=== PATIENT | male | born 1940 | race Caucasian/White ===

== ENCOUNTER 2016-11-18 15:29 | Outpatient (CLI) | payer MEDICARE, BC | END 2016-11-18 15:30 | disposition home or self-care (01) | DX: I48.0 Paroxysmal atrial fibrillation (principal); Z79.01 Long term (current) use of anticoagulants ==

== ENCOUNTER 2016-12-01 14:13 | Outpatient (CLI) | payer MEDICARE, BC | END 2016-12-01 14:14 | disposition home or self-care (01) | DX: I48.0 Paroxysmal atrial fibrillation (principal); Z79.01 Long term (current) use of anticoagulants ==

== ENCOUNTER 2016-12-16 05:01 | Emergency (ER) | payer MEDICARE, BC ==
[2016-12-16] MEDS ORDERED: oxyCOD/ACETAMIN 5 MG/325 MG TABLET PO STA (05:46)
[2016-12-16] MEDS ORDERED: oxyCOD/ACETAMIN 5 MG/325 MG TABLET PO ONE (05:52)
== END 2016-12-16 06:53 | disposition home or self-care (01) ==
DX: S80.12XA Contusion of left lower leg, initial encounter (principal); W01.0XXA Fall on same level from slipping, tripping and stumbling without subsequent striking against object, initial encounter; Y93.89 Activity, other specified; Y92.009 Unspecified place in unspecified non-institutional (private) residence as the place of occurrence of the external cause; Y99.8 Other external cause status; I10 Essential (primary) hypertension; I25.10 Atherosclerotic heart disease of native coronary artery without angina pectoris; I48.91 Unspecified atrial fibrillation; Z79.01 Long term (current) use of anticoagulants; Z79.02 Long term (current) use of antithrombotics/antiplatelets; E03.9 Hypothyroidism, unspecified
CPT/HCPCS: 36415; 73590; 73610; 80053; 83690; 85025; 85610; 99283; 99284; A9270

== ENCOUNTER 2017-01-04 15:08 | Outpatient (CLI) | payer MEDICARE, BC | END 2017-01-04 15:09 | disposition home or self-care (01) | DX: I48.0 Paroxysmal atrial fibrillation (principal); Z79.01 Long term (current) use of anticoagulants ==

== ENCOUNTER 2017-01-19 14:23 | Outpatient (CLI) | payer MEDICARE, BC | END 2017-01-19 14:24 | disposition home or self-care (01) | DX: I48.0 Paroxysmal atrial fibrillation (principal); Z79.01 Long term (current) use of anticoagulants ==

== ENCOUNTER 2017-02-02 08:00 | Outpatient (CLI) | payer MEDICARE, BC | END 2017-02-02 23:59 | DX: Z79.01 Long term (current) use of anticoagulants (principal) ==

== ENCOUNTER 2017-02-22 14:00 | Outpatient (CLI) | payer BC, MEDICARE, OTHER | END 2017-02-22 14:01 | disposition home or self-care (01) | DX: L03.116 Cellulitis of left lower limb (principal) ==

== ENCOUNTER 2017-03-16 14:01 | Outpatient (CLI) | payer MEDICARE, BC | END 2017-03-16 14:02 | disposition home or self-care (01) | DX: I48.0 Paroxysmal atrial fibrillation (principal); Z79.01 Long term (current) use of anticoagulants ==

== ENCOUNTER 2017-04-14 | Outpatient (CLI) | payer MEDICARE, BC ==
[2017-04-14 17:48] LABS: INR 2.9 (0.8-1.2); PT - PROTHROMBIN TIME 33.6 secs (9.9-12.6)
== END 2017-04-14 00:01 | disposition home or self-care (01) ==
LOC: LAB.F
PROVIDERS: ATTEND Pharmacist
DX: I48.0 Paroxysmal atrial fibrillation (principal); Z79.01 Long term (current) use of anticoagulants
CPT/HCPCS: 36415; 85610

== ENCOUNTER 2017-05-24 14:46 | Outpatient (CLI) | payer MEDICARE, BC ==
[2017-05-24 18:56] LABS: INR 2.3 (0.8-1.2); PT - PROTHROMBIN TIME 25.8 secs (9.9-12.6)
== END 2017-05-24 14:47 | disposition home or self-care (01) ==
LOC: LAB.F 14:46
PROVIDERS: ATTEND Pharmacist
DX: I48.0 Paroxysmal atrial fibrillation (principal)
CPT/HCPCS: 36415; 85610

== ENCOUNTER 2017-10-18 19:03 | Emergency (ER) | payer MEDICARE, BC ==
--- NOTE | 2017-10-18 20:15 | XRAY Preliminary Report ---
Exam: XR CHEST 2 VIEW PA/LAT IMPRESSION: 1. Increased interstitial density right lung base. Differential includes edema, airways inflammation, pneumonitis or bronchiolitis. 2. Possible increasing left pleural thickening, pleural fat or pleural mass less likely at lateral le ft base. 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 [facility] SITE ID: [id number]
[2017-10-18] MEDS ORDERED: IPRATROPIUM/ALBUTEROL 3 ML NEB INH STA (20:16)
[2017-10-18 20:18] LABS: BASOPHILS % (AUTO) 0.6 %; EOSINOPHILS # (AUTO) 0.3 10^3/uL (0.0-0.7); EOSINOPHILS % (AUTO) 4.7 %; HCT - HEMATOCRIT 39.9 % (42.0-52.0); HGB - HEMOGLOBIN 13.1 g/dL (14.0-18.0); LYMPHOCYTES # (AUTO) 1.1 10^3/uL (1.5-3.5); LYMPHOCYTES % (AUTO) 14.7 %; MEAN CORPUSCULAR HEMOGLOBIN 29.4 pg (27.0-31.0); MEAN CORPUSCULAR VOLUME 89.2 fL (80.0-94.0); MEAN PLATELET VOLUME 7.6 fL (7.4-11.4); MONOCYTES # (AUTO) 0.5 10^3/uL (0.0-1.0); MONOCYTES % (AUTO) 7.3 %; NEUTROPHILS # (AUTO) 5.3 10^3/uL (1.5-6.6); NEUTROPHILS % (AUTO) 72.7 %; NUCLEATED RED BLOOD CELLS AUTO 0.1 /100WBC; RED BLOOD COUNT 4.47 10^6/uL (4.70-6.10); RED CELL DISTRIBUTION WIDTH 17.2 % (12.0-15.0); UNCORRECTED WHITE BLOOD COUNT 7.3 x10^3/uL; WHITE BLOOD COUNT 7.3 x10^3/uL (4.8-10.8)
--- NOTE | 2017-10-18 20:18 | XRAY Report ---
EXAM: CHEST RADIOGRAPHY EXAM DATE: 10/18/2017 08:03 PM. CLINICAL HISTORY: Chest pain and cough . COMPARISON: 11/08/2010. TECHNIQUE: 2 views. FINDINGS: Lungs/Pleura: There are interstitial densities at the right lung base which appear more conspicuous t [place] previous. There is a circumscribed density overlying the lower lateral left lung which appears ex trapulmonary. The shape is similar to previous but appears slightly more prominent. Mediastinum: Heart size is normal. Trachea is midline. Other: Lateral view is limited by motion artifact. IMPRESSION: 1. Increased interstitial density right lung base. Differential includes edema, airways inflammation, pneumonitis or bronchiolitis. 2. Possible increasing left pleural thickening, pleural fat or pleural mass less likely at lateral le ft base. 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 [facility] Referring Provider Line: [phone] SITE ID: [id number]
[2017-10-18 20:27] LABS: ALBUMIN/GLOBULIN RATIO 1.2 (1.0-2.2); BILIRUBIN,TOTAL 0.8 mg/dL (0.2-1.0); CALCIUM 8.8 mg/dL (8.5-10.3); CREATININE 1.3 mg/dL (0.6-1.2); TOTAL PROTEIN 7.3 g/dL (6.7-8.2)
[2017-10-18] MEDS ORDERED: IPRATROPIUM/ALBUTEROL 3 ML NEB INH ONE (20:27)
[2017-10-18] MEDS ORDERED: methylPREDNISolone SUCCINATE 125 MG/2 ML VIAL IVP STA (21:00)
[2017-10-18] MEDS ORDERED: ALBUTEROL NEB 2.5 MG/3 ML INH STA (21:00)
[2017-10-18] MEDS ORDERED: ALBUTEROL NEB 2.5 MG/3 ML INH ONE (21:18)
[2017-10-18] MEDS ORDERED: methylPREDNISolone SUCCINATE 125 MG/2 ML VIAL ONE (21:23)
--- NOTE | 2017-10-18 21:35 | ED Physician Documentation ---
PD HPI URI - Stated complaint Stated Complaint: CHEST PX,COUGH,CONGESTION - Chief complaint Chief Complaint: Resp - History obtained from History obtained from: Patient, Family - History of Present Illness Timing - onset: How many days ago (3) Timing details: Gradual onset, Still present Associated symptoms: Rhinorrhea, Dry cough. No: Fever, Chills Contributing factors: No: Sick contact, COPD / asthma Worsened by: Activity Similar symptoms before: No diagnosis Recently seen: Not recently seen - Additional information Additional information: Patient is a 76 year old male with multiple co-morbidities who is presenting to the emergency department for chest pressure and cough over the last three days. patient states that he has not been able to sleep due to the amount that he is coughing. Patient states that he did break a rib from falling a few weeks ago as well and it is making every difficult to take a deep breath. Review of Systems Constitutional: denies: Fever, Chills Eyes: reports: Reviewed and negative Ears: reports: Reviewed and negative Nose: reports: Congestion. denies: Sinus pressure / pain Throat: denies: Sore throat Cardiac: reports: Chest pain / pressure. denies: Pedal edema, Calf pain Respiratory: reports: Cough, Wheezing GI: denies: Nausea, Vomiting : reports: Reviewed and negative Musculoskeletal: denies: Neck pain, Back pain, Extremity pain Neurologic: denies: Generalized weakness, Focal weakness, Numbness Immunocompromised: denies: Immunocompromised PD PAST MEDICAL HISTORY - Past Medical History Cardiovascular: Hypertension, High cholesterol, Coronary artery disease, Atrial fibrillation Respiratory: Sleep apnea, CPAP use Endocrine/Autoimmune: HyPOthyroidism GI: None, GERD : Benign prostate hypertrophy, Retention, Frequency HEENT: Chronic vision loss, Chronic hearing loss, Other Psych: Depression Musculoskeletal: Chronic back pain - Past Surgical History Past Surgical History: Yes - Present Medications Home Medications: Ambulatory Orders Medication Instructions Recorded Confirmed Metoprolol Tartrate 50 mg PO BID #60 tablet 09/28/15 12/16/16 Atorvastatin [Lipitor] 80 mg PO DAILY PM 12/16/16 12/16/16 Cetirizine [ZyrTEC] 10 mg PO DAILY 12/16/16 12/16/16 Cholecalciferol (Vitamin D3) 1,000 unit PO DAILY 12/16/16 12/16/16 [Vitamin D3] Clopidogrel [Plavix] 75 mg PO DAILY 12/16/16 12/16/16 Cyanocobalamin (Vitamin B-12) 1,000 mcg PO DAILY 12/16/16 12/16/16 [Vitamin B-12] Econazole Nitrate 1 misc TOP DAILY PM 12/16/16 12/16/16 Flunisolide 0.025 sprays NEB DAILY 12/16/16 12/16/16 Furosemide [Lasix] 120 mg PO DAILY 12/16/16 12/16/16 Gabapentin 300 mg PO BID 12/16/16 12/16/16 Hydrocodone/Acetaminophen 1 - 2 each PO Q6H PRN #7 tablet 12/16/16 [Hydrocodon-Acetaminophen 5-325] Levothyroxine [Synthroid] 100 mcg PO DAILY 12/16/16 12/16/16 Metoprolol Tartrate 50 mg PO BID 12/16/16 12/16/16 Omeprazole [PriLOSEC] 20 mg PO BID 12/16/16 12/16/16 Oxybutynin Chloride 5 mg PO BID 12/16/16 12/16/16 Potassium Chloride 20 meq PO DAILY PM 12/16/16 12/16/16 Sertraline HCl 50 mg PO DAILY 12/16/16 12/16/16 Sodium Chloride [Saline Mist] 2 spray NEB BID 12/16/16 12/16/16 Terazosin [Hytrin] 5 mg PO DAILY PM 12/16/16 12/16/16 Testosterone 75 gm TD DAILY 12/16/16 12/16/16 Warfarin [Coumadin] 4 mg PO 1400 12/16/16 12/16/16 Albuterol Sulf [Ventolin Hfa 2 puffs INH Q4HR PRN #1 inhaler 10/18/17 Inhaler] Benzonatate [Tessalon Perle] 100 mg PO Q8H #15 capsule 10/18/17 Codeine Phosphate/Guaifenesin 5 ml PO Q8H #100 ml 10/18/17 [Guaifen-Codeine 100-10 mg/5 ml] predniSONE [Prednisone] 40 mg PO DAILY 5 Days tablet 10/18/17 - Allergies Allergies/Adverse Reactions: Allergies Allergy/AdvReac Type Severity Reaction Status Date / Time No Known Drug Allergies Allergy Verified 10/18/17 19:19 - Social History Does the pt smoke?: No Smoking Status: Never smoker Does the pt drink ETOH?: No Does the pt have substance abuse?: No - Immunizations Immunizations are current?: Yes - POLST Patient has POLST: No PD ED PE NORMAL - Vitals Vital signs reviewed: Yes - General General: Alert and oriented X 3, Well developed/nourished - HEENT HEENT: Atraumatic, PERRL, Pharynx benign - Neck Neck: Supple, no meningeal sign, No JVD - Cardiac Cardiac: RRR, No murmur - Abdomen Abdomen: Soft, Non tender, Non distended - Derm Derm: Normal color, Warm and dry, No rash - Extremities Extremities: No deformity, No edema - Neuro Neuro: Alert and oriented X 3, No motor deficit, No sensory deficit, Normal speech - Psych Psych: Normal mood PD ED PE EXPANDED - HEENT HEENT: Dry mucous membranes - Respiratory Respiratory: Wheezing, Rhonchi, Right upper lobe, Right middle lobe, Right lower lobe, Left upper lobe, Left lower lobe. No: Distress, Accessory mm use Results - Vitals Vitals: Vital Signs - 24 hr 10/18/17 10/18/17 10/18/17 19:11 20:40 21:22 Temperature 36.6 C Heart Rate 86 92 93 Respiratory 22 16 100 H Rate Blood Pressure 138/81 H O2 Saturation 96 10/18/17 10/18/17 10/18/17 21:30 21:31 22:03 Temperature Heart Rate 106 H 91 98 Respiratory 16 15 19 Rate Blood Pressure 163/93 H 143/100 H O2 Saturation 96 94 Oxygen O2 Source Room air - EKG (time done) 1916 Rate: Rate (enter#) (76) Rhythm: Atrial fibrillation [place]: Normal Intervals: Normal OK Compare to prior EKG: Unchanged from prior EKG - Labs Labs: Laboratory Tests 10/18/17 10/18/17 10/18/17 19:27 19:27 19:27 WBC 7.3 RBC 4.47 L Hgb 13.1 L Hct 39.9 L MCV 89.2 MCH 29.4 MCHC 33.0 RDW 17.2 H Plt Count 192 MPV 7.6 Neut # 5.3 Lymph # 1.1 L [place] # 0.5 Eos # 0.3 Baso # 0.0 Absolute Nucleated RBC 0.01 Nucleated RBC % 0.1 Sodium 140 Potassium 4.0 Chloride 103 Carbon Dioxide 27 Anion Gap 10.0 BUN 16 Creatinine 1.3 H Estimated GFR (MDRD) 53 L Glucose 129 H Calcium 8.8 Total Bilirubin 0.8 AST 37 ALT 41 Alkaline Phosphatase 84 Troponin I < 0.04 Total Protein 7.3 Albumin 4.0 Globulin 3.3 Albumin/Globulin Ratio 1.2 Lipase 42 - Rads (name of study) chest x-ray Radiology: Final report received (density of right lung base, ), See rad report PD MEDICAL DECISION MAKING - ED course Complexity details: reviewed old records, reviewed results, re-evaluated patient , considered differential, d/w patient ED course: Patient was seen and examined at bedside. ekg was performed and showed a fib which was normal for the patient. labs were drawn and chest x-ray was ordered. Patient had bilateral wheezing and was treated with duoneb treatment. Patient inmproved slightly but continued to have wheezing and was treated with additional albuterol treatments and steroids. Patient ventilation continued to improve but patient still had some mild wheezing. patient stated that he wanted to leave and did not want any more treatments. Patient was given detailed discharge and follow up instructions, including the importance of a follow up echo. Patient and friend agreed that they would get close follow up. Patient was feeling better, prescriptions were written and patient was stable for discharge with outpatient follow up. Departure - Departure Disposition: 01 Home, Self Care Clinical Impression: Bronchitis Condition: Good Instructions: ED Bronchitis Asthmatic Follow-Up: Fabian Moreno MD [Primary Care Provider] - Tomorrow Prescriptions: Albuterol Sulf [Ventolin Hfa Inhaler] 2 puffs INH Q4HR PRN #1 inhaler PRN Reason: Wheezing Benzonatate [Tessalon Perle] 100 mg PO Q8H #15 capsule Codeine Phosphate/Guaifenesin [Guaifen-Codeine 100-10 mg/5 ml] 5 ml PO Q8H #100 ml predniSONE [Prednisone] 40 mg PO DAILY 5 Days tablet Comments: Your diagnostics today were within normal limits. there was a small amount of possibly fluid in your lungs from heart failure and not taking a deep breath due to your rib pain. You also had some wheezing that improved with the breathing treatments and steroids. You will be on the steriods for the next 5 days, and I will also prescribed an inhaler that you can take every 4 hours. Due to your age and risk factors it is also important that you follow up with your doctor tomorrow and schedule a follow up appointment and an echo cardiogram. You may return to to the emergency department at any time for new, worsening or uncontrollable symptoms. Discharge Date/Time: 10/18/17 22:05
[2017-10-18] MEDS ORDERED: MORPHINE 10 MG/ML VIAL IVP STA (21:36)
[2017-10-18 22:04] VITALS: BP 143/100
== END 2017-10-18 22:05 | disposition home or self-care (01) ==
LOC: ED 19:03
DX: J40 Bronchitis, not specified as acute or chronic (principal); I10 Essential (primary) hypertension; I25.10 Atherosclerotic heart disease of native coronary artery without angina pectoris; E78.00 Pure hypercholesterolemia, unspecified; G47.30 Sleep apnea, unspecified; E03.9 Hypothyroidism, unspecified; K21.9 Gastro-esophageal reflux disease without esophagitis; N40.0 Benign prostatic hyperplasia without lower urinary tract symptoms
CPT/HCPCS: 36415; 71020; 80053; 83690; 84484; 85025; 93005; 94640; 96374; 99283; 99284; J7613; J7620

== ENCOUNTER 2017-11-20 08:00 | Outpatient (CLI) | payer MEDICARE, BC ==
[2017-11-20 18:31] LABS: INR 2.9 (0.8-1.2); PT - PROTHROMBIN TIME 31.2 secs (9.9-12.6)
== END 2017-11-20 08:01 | disposition home or self-care (01) ==
LOC: LAB.F 08:00
PROVIDERS: ATTEND Pharmacist
DX: I48.0 Paroxysmal atrial fibrillation (principal); Z79.01 Long term (current) use of anticoagulants
CPT/HCPCS: 36415; 85610

== ENCOUNTER 2017-12-06 18:23 | Emergency (ER) | payer MEDICARE, BC ==
--- NOTE | 2017-12-06 19:44 | XRAY Report ---
EXAM: CHEST RADIOGRAPHY EXAM DATE: 12/06/2017 07:32 PM. CLINICAL HISTORY: Fever and cough since yesterday. COMPARISON: 10/18/2017. TECHNIQUE: 2 views. FINDINGS: Lungs/Pleura: Stable mild scarring in the bases and lateral pleural thickening at the left base. No f ocal opacities evident. No pleural effusion. No pneumothorax. Hyperinflated lungs. Mediastinum: Heart and mediastinal contours are unremarkable. Other: No compression fractures. IMPRESSION: No acute pulmonary abnormality or interval change. [facility] Referring Provider Line: [phone] SITE ID: [id number]
[2017-12-06] MEDS ORDERED: IPRATROPIUM/ALBUTEROL 3 ML NEB INH STA (19:54)
--- NOTE | 2017-12-06 20:50 | ED Physician Documentation ---
History of Present Illness - Stated complaint Stated Complaint: FLU LIKE SYMPTOMS - Chief complaint Chief Complaint: Resp - History obtained from History obtained from: Patient (2-3 days of fatigue and cough. no sinus congestion. is on home o2 and has nothad an increase in his o2 need, no fevers , no chest pain..) Review of Systems Constitutional: reports: Fatigue. denies: Fever, Chills Nose: denies: Rhinorrhea / runny nose, Congestion, Sinus pressure / pain Throat: denies: Sore throat, Swollen tonsils Cardiac: denies: Chest pain / pressure, Palpitations Respiratory: reports: Cough. denies: Dyspnea, Hemoptysis, Wheezing GI: denies: Abdominal Pain, Nausea, Vomiting : denies: Dysuria Skin: denies: Rash Musculoskeletal: denies: Neck pain, Back pain Neurologic: reports: Generalized weakness. denies: Headache, LOC PD PAST MEDICAL HISTORY - Past Medical History Past Medical History: Yes Cardiovascular: Hypertension, High cholesterol, Coronary artery disease, Atrial fibrillation Respiratory: Sleep apnea, CPAP use Endocrine/Autoimmune: HyPOthyroidism GI: None, GERD : Benign prostate hypertrophy, Retention, Frequency HEENT: Chronic vision loss, Chronic hearing loss, Other Psych: Depression Musculoskeletal: Chronic back pain - Past Surgical History Past Surgical History: Yes - Present Medications Home Medications: Ambulatory Orders Medication Instructions Recorded Confirmed Metoprolol Tartrate 50 mg PO BID #60 tablet 09/28/15 12/16/16 Atorvastatin [Lipitor] 80 mg PO DAILY PM 12/16/16 12/16/16 Cetirizine [ZyrTEC] 10 mg PO DAILY 12/16/16 12/16/16 Cholecalciferol (Vitamin D3) 1,000 unit PO DAILY 12/16/16 12/16/16 [Vitamin D3] Clopidogrel [Plavix] 75 mg PO DAILY 12/16/16 12/16/16 Cyanocobalamin (Vitamin B-12) 1,000 mcg PO DAILY 12/16/16 12/16/16 [Vitamin B-12] Econazole Nitrate 1 misc TOP DAILY PM 12/16/16 12/16/16 Flunisolide 0.025 sprays NEB DAILY 12/16/16 12/16/16 Furosemide [Lasix] 120 mg PO DAILY 12/16/16 12/16/16 Gabapentin 300 mg PO BID 12/16/16 12/16/16 Hydrocodone/Acetaminophen 1 - 2 each PO Q6H PRN #7 tablet 12/16/16 [Hydrocodon-Acetaminophen 5-325] Levothyroxine [Synthroid] 100 mcg PO DAILY 12/16/16 12/16/16 Metoprolol Tartrate 50 mg PO BID 12/16/16 12/16/16 Omeprazole [PriLOSEC] 20 mg PO BID 12/16/16 12/16/16 Oxybutynin Chloride 5 mg PO BID 12/16/16 12/16/16 Potassium Chloride 20 meq PO DAILY PM 12/16/16 12/16/16 Sertraline HCl 50 mg PO DAILY 12/16/16 12/16/16 Sodium Chloride [Saline Mist] 2 spray NEB BID 12/16/16 12/16/16 Terazosin [Hytrin] 5 mg PO DAILY PM 12/16/16 12/16/16 Testosterone 75 gm TD DAILY 12/16/16 12/16/16 Warfarin [Coumadin] 4 mg PO 1400 12/16/16 12/16/16 Albuterol Sulf [Ventolin Hfa 2 puffs INH Q4HR PRN #1 inhaler 10/18/17 Inhaler] Benzonatate [Tessalon Perle] 100 mg PO Q8H #15 capsule 10/18/17 Codeine Phosphate/Guaifenesin 5 ml PO Q8H #100 ml 10/18/17 [Guaifen-Codeine 100-10 mg/5 ml] predniSONE [Prednisone] 40 mg PO DAILY 5 Days tablet 10/18/17 Albuterol Sulf [Ventolin Hfa 2 puffs INH Q4HR PRN #1 inhaler 12/06/17 Inhaler] Oseltamivir [Tamiflu] 75 mg PO BID #10 capsule 12/06/17 - Allergies Allergies/Adverse Reactions: Allergies Allergy/AdvReac Type Severity Reaction Status Date / Time No Known Drug Allergies Allergy Verified 12/06/17 18:44 - Social History Does the pt smoke?: No Smoking Status: Never smoker Does the pt drink ETOH?: No Does the pt have substance abuse?: No - Immunizations Immunizations are current?: Yes - POLST Patient has POLST: No PD ED PE NORMAL - Vitals Vital signs reviewed: Yes - General General: Alert and oriented X 3, No acute distress, Well developed/nourished - Cardiac Cardiac: No: RRR (tachycardic) - Respiratory Respiratory: No: Clear bilaterally (bilateral rhonchi and wheezing) - Abdomen Abdomen: Soft, Non tender - Derm Derm: Normal color, No rash - Extremities Extremities: No deformity - Neuro Neuro: Alert and oriented X 3, No motor deficit, Normal speech Eye Opening: Spontaneous Motor: Obeys Commands Verbal: Oriented GCS Score: 15 - Psych Psych: Normal mood, Normal affect Results - Vitals Vitals: Vital Signs - 24 hr 12/06/17 12/06/17 12/06/17 18:40 20:00 20:40 Temperature 36.0 C L Heart Rate 102 H 86 93 Respiratory 26 H 20 21 Rate Blood Pressure 139/74 H 138/73 H O2 Saturation 87 L 94 Oxygen O2 Source Nasal cannula Oxygen Flow Rate 2.5 - Labs Labs: Laboratory Tests 12/06/17 19:00 Influenza A (Rapid) Negative Influenza B (Rapid) POSITIVE H Influenza Types A,B Ag + H - Rads (name of study) CXR Radiology: Final report received (IMPRESSION: No acute pulmonary abnormality or interval change.), EMP read contemporaneously PD MEDICAL DECISION MAKING - ED course Complexity details: reviewed results, considered differential, d/w patient ED course: pt is non-toxic, no respiratory distress. is on his home o2. minimal improvement with the neb here in the ER. pt states he just is fatigued. he is flu positive. he does meet criteria from CDC for treatment. will send home with meds. pt given return precautions . Departure - Departure Disposition: Home, Self Care Clinical Impression: Flu, Shortness of breath Condition: Good Instructions: ED Flu Follow-Up: Fabian Moreno MD [Primary Care Provider] - Prescriptions: Albuterol Sulf [Ventolin Hfa Inhaler] 2 puffs INH Q4HR PRN #1 inhaler PRN Reason: Shortness Of Air/Wheezing Oseltamivir [Tamiflu] 75 mg PO BID #10 capsule Comments: Take all of your medications as instructed. Return to the ER for any new or worsening symptoms. Discharge Date/Time: 12/06/17 20:55
[2017-12-06 21:19] VITALS: BP 138/73
== END 2017-12-06 20:55 | disposition home or self-care (01) ==
LOC: ED 18:23
DX: J11.1 Influenza due to unidentified influenza virus with other respiratory manifestations (principal); R06.02 Shortness of breath; I10 Essential (primary) hypertension; E78.00 Pure hypercholesterolemia, unspecified; E03.9 Hypothyroidism, unspecified; I48.91 Unspecified atrial fibrillation; Z79.01 Long term (current) use of anticoagulants
CPT/HCPCS: 71046; 87275; 87276; 94640; 99283; J7620

== ENCOUNTER 2017-12-12 14:15 | Outpatient (CLI) | payer MEDICARE, BC ==
[2017-12-12 17:43] LABS: INR 1.6 (0.8-1.2)
== END 2017-12-12 14:16 | disposition home or self-care (01) ==
LOC: LAB.F 14:15
PROVIDERS: ATTEND Pharmacist
DX: I48.0 Paroxysmal atrial fibrillation (principal); Z79.01 Long term (current) use of anticoagulants
CPT/HCPCS: 36415; 85610

== ENCOUNTER 2017-12-28 15:07 | Outpatient (CLI) | payer MEDICARE, BC ==
[2017-12-28 17:33] LABS: INR 4.1 (0.8-1.2); PT - PROTHROMBIN TIME 43.5 secs (9.9-12.6)
== END 2017-12-28 15:08 | disposition home or self-care (01) ==
LOC: LAB.F 15:07
PROVIDERS: ATTEND Pharmacist
DX: I48.0 Paroxysmal atrial fibrillation (principal); Z79.01 Long term (current) use of anticoagulants
CPT/HCPCS: 36415; 85610

== ENCOUNTER 2018-01-04 13:59 | Outpatient (CLI) | payer MEDICARE, BC ==
[2018-01-04 17:33] LABS: INR 2.6 (0.8-1.2); PT - PROTHROMBIN TIME 28.5 secs (9.9-12.6)
== END 2018-01-04 14:00 | disposition home or self-care (01) ==
LOC: LAB.F 13:59
PROVIDERS: ATTEND Pharmacist
DX: I48.0 Paroxysmal atrial fibrillation (principal); Z79.01 Long term (current) use of anticoagulants
CPT/HCPCS: 36415; 85610

== ENCOUNTER 2018-01-23 08:00 | Outpatient (CLI) | payer MEDICARE, BC ==
[2018-01-23 18:17] LABS: PT - PROTHROMBIN TIME 32.8 secs (9.9-12.6)
== END 2018-01-23 08:01 ==
LOC: LAB.F 08:00
PROVIDERS: ATTEND Pharmacist
DX: I48.0 Paroxysmal atrial fibrillation (principal); Z79.01 Long term (current) use of anticoagulants
CPT/HCPCS: 36415; 85610

== ENCOUNTER 2018-01-23 15:26 | Outpatient (CLI) | payer MEDICARE, BC | END 2018-01-23 15:27 | disposition home or self-care (01) | LOC: LAB.F 15:26 | PROVIDERS: ATTEND Pharmacist | DX: I48.91 Unspecified atrial fibrillation (principal); Z79.01 Long term (current) use of anticoagulants ==

== ENCOUNTER 2018-02-09 16:20 | Outpatient (CLI) | payer MEDICARE, BC ==
[2018-02-09 18:27] LABS: PT - PROTHROMBIN TIME 21.6 secs (9.9-12.6)
== END 2018-02-09 16:21 | disposition home or self-care (01) ==
LOC: LAB.F 16:20
PROVIDERS: ATTEND Pharmacist
DX: I48.0 Paroxysmal atrial fibrillation (principal); Z79.01 Long term (current) use of anticoagulants
CPT/HCPCS: 36415; 85610

== ENCOUNTER 2018-04-12 14:31 | Outpatient (CLI) | payer MEDICARE, BC ==
[2018-04-12 17:45] LABS: INR 3.2 (0.8-1.2); PT - PROTHROMBIN TIME 34.2 secs (9.9-12.6)
== END 2018-04-12 14:32 | disposition home or self-care (01) ==
LOC: LAB.F 14:31
PROVIDERS: ATTEND Pharmacist
DX: I48.0 Paroxysmal atrial fibrillation (principal); Z79.01 Long term (current) use of anticoagulants
CPT/HCPCS: 36415; 85610

== ENCOUNTER 2018-07-10 16:16 | Outpatient (CLI) | payer MEDICARE, BC ==
[2018-07-10 18:34] LABS: INR 2.4 (0.8-1.2); PT - PROTHROMBIN TIME 26.2 secs (9.9-12.6)
== END 2018-07-10 16:17 ==
LOC: LAB.F 16:16
PROVIDERS: ATTEND Pharmacist
DX: I48.0 Paroxysmal atrial fibrillation (principal); Z79.01 Long term (current) use of anticoagulants
CPT/HCPCS: 36415; 85610

== ENCOUNTER 2018-08-22 13:41 | Emergency (ER) | payer MEDICARE, BC ==
[2018-08-22] MEDS ORDERED: LIDOCAINE 2% URO-JET 5 ML SYRINGE UR STA (14:52)
--- NOTE | 2018-08-22 14:54 | ED Physician Documentation ---
PD HPI ABD PAIN - Stated complaint Stated Complaint: MALE - Chief complaint Chief Complaint: Abd Pain - History obtained from History obtained from: Patient - History of Present Illness Timing - onset: Other (For the last week this 77-year-old morbidly obese gentleman has had burning dysuria and frequency and incomplete emptying without back or abdominal pain or rectal pain. No fevers.) Review of Systems Constitutional: denies: Fever, Chills Nose: reports: Reviewed and negative Throat: reports: Reviewed and negative PD PAST MEDICAL HISTORY - Past Medical History Cardiovascular: Hypertension, High cholesterol, Coronary artery disease, Atrial fibrillation Respiratory: Sleep apnea, CPAP use Endocrine/Autoimmune: HyPOthyroidism GI: None, GERD : Benign prostate hypertrophy, Retention, Frequency HEENT: Chronic vision loss, Chronic hearing loss, Other Psych: Depression Musculoskeletal: Chronic back pain - Past Surgical History Past Surgical History: Yes - Present Medications Home Medications: Ambulatory Orders Medication Instructions Recorded Confirmed Metoprolol Tartrate 50 mg PO BID #60 tablet 09/28/15 12/16/16 Atorvastatin [Lipitor] 80 mg PO DAILY PM 12/16/16 12/16/16 Cetirizine [ZyrTEC] 10 mg PO DAILY 12/16/16 12/16/16 Cholecalciferol (Vitamin D3) 1,000 unit PO DAILY 12/16/16 12/16/16 [Vitamin D3] Cyanocobalamin (Vitamin B-12) 1,000 mcg PO DAILY 12/16/16 12/16/16 [Vitamin B-12] Econazole Nitrate 1 misc TOP DAILY PM 12/16/16 12/16/16 Flunisolide 0.025 sprays NEB DAILY 12/16/16 12/16/16 Furosemide [Lasix] 120 mg PO DAILY 12/16/16 12/16/16 Gabapentin 300 mg PO BID 12/16/16 12/16/16 Levothyroxine [Synthroid] 100 mcg PO DAILY 12/16/16 12/16/16 Metoprolol Tartrate 50 mg PO BID 12/16/16 12/16/16 Omeprazole [PriLOSEC] 20 mg PO BID 12/16/16 12/16/16 Oxybutynin Chloride 5 mg PO BID 12/16/16 12/16/16 Potassium Chloride 20 meq PO DAILY PM 12/16/16 12/16/16 Sertraline HCl 50 mg PO DAILY 12/16/16 12/16/16 Sodium Chloride [Saline Mist] 2 spray NEB BID 12/16/16 12/16/16 Terazosin [Hytrin] 5 mg PO DAILY PM 12/16/16 12/16/16 Testosterone 75 gm TD DAILY 12/16/16 12/16/16 Warfarin [Coumadin] 4 mg PO 1400 12/16/16 12/16/16 Albuterol Sulf [Ventolin Hfa 2 puffs INH Q4HR PRN #1 inhaler 10/18/17 Inhaler] Albuterol Sulf [Ventolin Hfa 2 puffs INH Q4HR PRN #1 inhaler 12/06/17 Inhaler] Ciprofloxacin HCl [Cipro] 500 mg PO BID #20 tablet 08/22/18 - Allergies Allergies/Adverse Reactions: Allergies Allergy/AdvReac Type Severity Reaction Status Date / Time No Known Drug Allergies Allergy Verified 08/22/18 14:11 - Social History Does the pt smoke?: No Smoking Status: Never smoker Does the pt drink ETOH?: No Does the pt have substance abuse?: No - Immunizations Immunizations are current?: Yes - POLST Patient has POLST: No PD ED PE NORMAL - Vitals Vital signs reviewed: Yes - General General: Alert and oriented X 3, No acute distress - Abdomen Abdomen: Normal bowel sounds, Soft, Non tender - Male Male : Other (Genitalia are normal. The bladder scan did not get a good read I think due to body habitus but using bedside ultrasound he does have a full bladder despite just having urinated.) - Back Back: No CVA TTP, No spinal TTP - Neuro Neuro: Alert and oriented X 3, Normal speech - Psych Psych: Normal mood, Normal affect Results - Vitals Vitals: Vital Signs - 24 hr 08/22/18 14:09 Temperature 36.6 C Heart Rate 80 Respiratory 20 Rate Blood Pressure 142/101 H O2 Saturation 91 L Oxygen O2 Source Room air PD MEDICAL DECISION MAKING - ED course ED course: 77-year-old gentleman presents with UTI symptoms, some concern for urinary retention based on bedside ultrasound, but after ordering a catheter he had copious urine output, about 500 mL's and refused [place]. - Sepsis Event Vital Signs: Vital Signs - 24 hr 08/22/18 14:09 Temperature 36.6 C Heart Rate 80 Respiratory 20 Rate Blood Pressure 142/101 H O2 Saturation 91 L Oxygen O2 Source Room air Departure - Departure Disposition: Home, Self Care Clinical Impression: Urinary tract infection Qualifiers: Urinary tract infection type: acute cystitis Hematuria presence: without hematuria Qualified Code(s): N30.00 - Acute cystitis without hematuria Condition: Good Record reviewed to determine appropriate education?: Yes Instructions: ED UTI Cystitis Male Prescriptions: Ciprofloxacin HCl [Cipro] 500 mg PO BID #20 tablet Comments: We will culture your urine, the results should be done in 48-72 hours. If an antibiotic change is necessary we will call you. Return if worse in the meantime, especially if you develop increasing flank pain, fevers, or cannot keep down the medication. Often times when you start antibiotics while you are taking anticoagulants such as Coumadin or warfarin, your INR will go up. You need to have your INR checked frequently while on the antibiotics. Have it checked in 3 days, again in 6 days, and at least weekly while you are on antibiotics. Dose adjustments of your anticoagulants may be necessary.
[2018-08-22 14:57] LABS: BILIRUBIN,URINE NEGATIVE (NEGATIVE); GLUCOSE, URINE (UA) NEGATIVE (NEGATIVE); KETONES,URINE (UA) NEGATIVE (NEGATIVE); LEUKOCYTE ESTERASE, URINE LARGE (NEGATIVE); NITRITE,URINE POSITIVE (NEGATIVE); OCCULT BLOOD,URINE MODERATE (NEGATIVE); PH,URINE 6.5 PH (5.0-7.5); PROTEIN,URINE 30 mg/dL (NEGATIVE); UROBILINOGEN,URINE 0.2 (NORMAL) E.U./dL (NORMAL)
[2018-08-22 15:02] LABS: CLARITY,URINE CLEAR (CLEAR)
[2018-08-22 15:10] LABS: BACTERIA,URINE None Seen /HPF (None Seen); RBC,URINE 0-5 /HPF (0-5); SQUAMOUS EPITHELIAL CELL,UR NONE SEEN (<= Few); WBC CLUMPS,URINE PRESENT
[2018-08-22] MEDS ORDERED: CIPROFLOXACIN 250 MG TABLET PO STA (15:26)
[2018-08-22 15:45] VITALS: BP 132/94
== END 2018-08-22 15:45 | disposition home or self-care (01) ==
LOC: ED 13:41
DX: N30.00 Acute cystitis without hematuria (principal); N40.1 Benign prostatic hyperplasia with lower urinary tract symptoms; R33.8 Other retention of urine; I10 Essential (primary) hypertension; I48.91 Unspecified atrial fibrillation; Z79.01 Long term (current) use of anticoagulants; E66.01 Morbid (severe) obesity due to excess calories; Z68.42 Body mass index [BMI] 45.0-49.9, adult
CPT/HCPCS: 81001; 87086; 99283; A9270; 81003; 87077; 87181

== ENCOUNTER 2018-08-30 11:46 | Outpatient (CLI) | payer MEDICARE, BC ==
[2018-08-30 17:17] LABS: INR 2.6 (0.8-1.2); PT - PROTHROMBIN TIME 28.7 secs (9.9-12.6)
== END 2018-08-30 11:47 | disposition home or self-care (01) ==
LOC: LAB.F 11:46
PROVIDERS: ATTEND Pharmacist
DX: I48.0 Paroxysmal atrial fibrillation (principal); Z79.01 Long term (current) use of anticoagulants
CPT/HCPCS: 36415; 85610

== ENCOUNTER 2018-09-19 15:03 | Outpatient (CLI) | payer MEDICARE, BC ==
[2018-09-19 18:07] LABS: INR 3.7 (0.8-1.2); PT - PROTHROMBIN TIME 41.8 secs (9.9-12.6)
== END 2018-09-19 15:04 | disposition home or self-care (01) ==
LOC: LAB.F 15:03
PROVIDERS: ATTEND Pharmacist
DX: I48.0 Paroxysmal atrial fibrillation (principal); Z79.01 Long term (current) use of anticoagulants
CPT/HCPCS: 36415; 85610

== ENCOUNTER 2018-10-25 15:14 | Outpatient (CLI) | payer MEDICARE, BC ==
[2018-10-25 17:45] LABS: INR 2.4 (0.8-1.2); PT - PROTHROMBIN TIME 27.3 secs (9.9-12.6)
== END 2018-10-25 15:15 | disposition home or self-care (01) ==
LOC: LAB.F 15:14
PROVIDERS: ATTEND Pharmacist
DX: I48.0 Paroxysmal atrial fibrillation (principal); Z79.01 Long term (current) use of anticoagulants
CPT/HCPCS: 36415; 85610

== ENCOUNTER 2019-01-22 08:00 | Outpatient (CLI) | payer MEDICARE, BC ==
[2019-01-22 17:47] LABS: INR 1.7 (0.8-1.2); PT - PROTHROMBIN TIME 19.1 secs (9.9-12.6)
== END 2019-01-22 23:59 | disposition home or self-care (01) ==
LOC: LAB.F 08:00
PROVIDERS: ATTEND Pharmacist
DX: I48.0 Paroxysmal atrial fibrillation (principal); Z79.01 Long term (current) use of anticoagulants
CPT/HCPCS: 36415; 85610

== ENCOUNTER 2019-02-14 15:05 | Outpatient (CLI) | payer MEDICARE, BC ==
[2019-02-14 17:35] LABS: INR 2.5 (0.8-1.2); PT - PROTHROMBIN TIME 27.7 secs (9.9-12.6)
== END 2019-02-14 15:06 | disposition home or self-care (01) ==
LOC: LAB.F 15:05
PROVIDERS: ATTEND Pharmacist
DX: I48.0 Paroxysmal atrial fibrillation (principal); Z79.01 Long term (current) use of anticoagulants
CPT/HCPCS: 36415; 85610

== ENCOUNTER 2019-06-12 11:52 | Outpatient (CLI) | payer MEDICARE, BC ==
[2019-06-12 17:54] LABS: INR 4.4 (0.8-1.2)
== END 2019-06-12 11:53 | disposition home or self-care (01) ==
LOC: LAB.S 11:52
PROVIDERS: ATTEND Pharmacist
DX: I48.0 Paroxysmal atrial fibrillation (principal); Z79.01 Long term (current) use of anticoagulants
CPT/HCPCS: 36415; 85610

== ENCOUNTER 2019-06-17 | Outpatient (CLI) | payer MEDICARE, BC | END 2019-06-17 15:37 | disposition home or self-care (01) ==

== ENCOUNTER 2019-08-08 14:31 | Outpatient (CLI) | payer MEDICARE, BC ==
[2019-08-08 17:29] LABS: INR 2.6 (0.8-1.2); PT - PROTHROMBIN TIME 28.4 secs (9.9-12.6)
== END 2019-08-08 14:32 | disposition home or self-care (01) ==
LOC: LAB.S 14:31
PROVIDERS: ATTEND Pharmacist
DX: I48.0 Paroxysmal atrial fibrillation (principal); Z79.01 Long term (current) use of anticoagulants
CPT/HCPCS: 36415; 85610

== ENCOUNTER 2019-08-30 13:55 | Outpatient (CLI) | payer MEDICARE, BC ==
[2019-08-30 17:38] LABS: INR 3.4 (0.8-1.2); PT - PROTHROMBIN TIME 36.4 secs (9.9-12.6)
== END 2019-08-30 13:56 | disposition home or self-care (01) ==
LOC: LAB.S 13:55
PROVIDERS: ATTEND Pharmacist
DX: I48.0 Paroxysmal atrial fibrillation (principal); Z79.01 Long term (current) use of anticoagulants
CPT/HCPCS: 36415; 85610

== ENCOUNTER 2019-10-21 15:45 | Outpatient (CLI) | payer MEDICARE, BC ==
[2019-10-21 17:24] LABS: INR 1.9 (0.8-1.2); PT - PROTHROMBIN TIME 21.3 secs (9.9-12.6)
== END 2019-10-21 15:46 | disposition home or self-care (01) ==
LOC: LAB.S 15:45
PROVIDERS: ATTEND Pharmacist
DX: I48.0 Paroxysmal atrial fibrillation (principal); Z79.01 Long term (current) use of anticoagulants
CPT/HCPCS: 36415; 85610

== ENCOUNTER 2019-11-05 19:12 | Outpatient (CLI) | payer MEDICARE, BC | END 2019-11-05 19:13 | disposition critical access hospital (66) | LOC: EMS 19:12 | PROVIDERS: ATTEND Surgery | DX: R42 Dizziness and giddiness (principal); R55 Syncope and collapse; R11.0 Nausea; R07.81 Pleurodynia; R61 Generalized hyperhidrosis | CPT/HCPCS: A0425; A0427 ==

== ENCOUNTER 2019-11-05 19:39 | Observation (INO) | payer MEDICARE, BC ==
[2019-11-05 20:01] LABS: BASOPHILS % (AUTO) 0.2 %; EOSINOPHILS # (AUTO) 0.1 10^3/uL (0.0-0.7); EOSINOPHILS % (AUTO) 0.9 %; HGB - HEMOGLOBIN 10.9 g/dL (14.0-18.0); LYMPHOCYTES # (AUTO) 1.6 10^3/uL (1.5-3.5); LYMPHOCYTES % (AUTO) 11.2 %; MEAN CORPUSCULAR HEMOGLOBIN 30.9 pg (27.0-31.0); MEAN CORPUSCULAR HGB CONC 31.6 g/dL (32.0-36.0); MEAN CORPUSCULAR VOLUME 97.7 fL (80.0-94.0); MEAN PLATELET VOLUME 9.1 fL (7.4-11.4); MONOCYTES # (AUTO) 0.7 10^3/uL (0.0-1.0); MONOCYTES % (AUTO) 5.2 %; NEUTROPHILS # (AUTO) 11.4 10^3/uL (1.5-6.6); NEUTROPHILS % (AUTO) 81.8 %; PLT - PLATELET COUNT 187 10^3/uL (130-450); RED BLOOD COUNT 3.53 10^6/uL (4.70-6.10); RED CELL DISTRIBUTION WIDTH 15.6 % (12.0-15.0); WHITE BLOOD COUNT 13.9 x10^3/uL (4.8-10.8)
[2019-11-05 20:06] LABS: INR 1.5 (0.8-1.2); PT - PROTHROMBIN TIME 17.2 secs (9.9-12.6)
[2019-11-05 20:14] LABS: ALBUMIN 2.8 g/dL (3.2-5.5); ALBUMIN/GLOBULIN RATIO 1.3 (1.0-2.2); BILIRUBIN,TOTAL 0.8 mg/dL (0.2-1.0); CALCIUM 7.4 mg/dL (8.5-10.3); CREATININE 1.1 mg/dL (0.6-1.2)
[2019-11-05] MEDS ORDERED: MORPHINE 2 MG/ML CARPUJECT IVP STA (20:20)
--- NOTE | 2019-11-05 20:24 | ED Physician Documentation ---
PD HPI SYNCOPE - Stated complaint Stated Complaint: SYNCOPE, RT RIB PAIN S/P SNEEZE - Chief complaint Chief Complaint: Neuro - History obtained from History obtained from: Patient (This is an 78-year-old gentleman with history of atrial fibrillation on warfarin, and coronary disease. Few days ago he sneezed and developed right-sided and right upper quadrant pain, and today sneezed again and the pain recurred. About an hour after that he was going out for food and developed dizziness and had several syncopal episodes. He is short of breath but is chronically short of breath and says that is no different than normal. He denies chest pain other than the right-sided chest pain from sneezing.) Review of Systems Ten Systems: 10 systems reviewed and negative Constitutional: denies: Fever, Chills Cardiac: reports: Chest pain / pressure. denies: Palpitations Respiratory: reports: Dyspnea. denies: Cough GI: reports: Abdominal Pain. denies: Nausea, Vomiting, Bloody / black stool PD PAST MEDICAL HISTORY - Past Medical History Cardiovascular: Hypertension, High cholesterol, Coronary artery disease, Atrial fibrillation Respiratory: Sleep apnea, CPAP use Endocrine/Autoimmune: HyPOthyroidism GI: None, GERD : Benign prostate hypertrophy, Retention, Frequency HEENT: Chronic vision loss, Chronic hearing loss, Other Psych: Depression Musculoskeletal: Chronic back pain - Past Surgical History Past Surgical History: Yes - Present Medications Home Medications: Ambulatory Orders Medication Instructions Recorded Confirmed Atorvastatin [Lipitor] 80 mg PO DAILY PM 12/16/16 12/16/16 Cholecalciferol (Vitamin D3) 1,000 unit PO DAILY 12/16/16 12/16/16 [Vitamin D3] Cyanocobalamin (Vitamin B-12) 1,000 mcg PO DAILY 12/16/16 12/16/16 [Vitamin B-12] Econazole Nitrate 1 misc TOP DAILY PM 12/16/16 12/16/16 Flunisolide 0.025 sprays NEB DAILY 12/16/16 12/16/16 Furosemide [Lasix] 80 mg PO DAILY 12/16/16 12/16/16 Gabapentin 900 mg PO BID 12/16/16 12/16/16 Levothyroxine [Synthroid] 100 mcg PO DAILY 12/16/16 12/16/16 Metoprolol Tartrate 50 mg PO BID 12/16/16 12/16/16 Omeprazole [PriLOSEC] 20 mg PO BID 12/16/16 12/16/16 Oxybutynin Chloride 5 mg PO DAILY 12/16/16 12/16/16 Potassium Chloride 20 meq PO DAILY PM 12/16/16 12/16/16 Sodium Chloride [Saline Mist] 2 spray NEB BID 12/16/16 12/16/16 Warfarin [Coumadin] 4 mg PO QPM 12/16/16 12/16/16 Albuterol Sulf [Ventolin Hfa 2 puffs INH Q4HR PRN #1 inhaler 12/06/17 Inhaler] Aspirin 81 mg PO DAILY 11/05/19 11/05/19 Colchicine 0.6 mg PO PRN PRN 11/05/19 11/05/19 Duloxetine HCl [Cymbalta] 60 mg PO DAILY 11/05/19 11/05/19 Ferrous Sulfate 325 mg PO DAILY 11/05/19 11/05/19 Finasteride 5 mg PO QPM 11/05/19 11/05/19 Loratadine [Claritin] 10 mg PO BID 11/05/19 11/05/19 Mirabegron [Myrbetriq] 25 mg PO BID 11/05/19 11/05/19 Tamsulosin [Flomax] 0.8 mg PO QPM 11/05/19 11/05/19 Testosterone [Androgel] 0.5 packet BID 11/05/19 11/05/19 Trazodone HCl 300 mg PO QPM 11/05/19 11/05/19 - Allergies Allergies/Adverse Reactions: Allergies Allergy/AdvReac Type Severity Reaction Status Date / Time No Known Drug Allergies Allergy Verified 11/05/19 20:15 - Social History Does the pt smoke?: No Smoking Status: Never smoker Does the pt drink ETOH?: No Does the pt have substance abuse?: No - Immunizations Immunizations are current?: Yes - POLST Patient has POLST: No PD ED PE NORMAL - Vitals Vital signs reviewed: Yes - General General: Alert and oriented X 3, Other (He appears uncomfortable and is clutching his right upper quadrant) - HEENT HEENT: PERRL, EOMI - Neck Neck: Supple, no meningeal sign, No bony TTP - Cardiac Cardiac: RRR, No murmur - Respiratory Respiratory: No respiratory distress, Clear bilaterally - Abdomen Abdomen: Other (Right upper quadrant tenderness) - Extremities Extremities: No edema, No calf tenderness / cord - Neuro Neuro: Alert and oriented X 3, Normal speech Results - Vitals Vitals: Vital Signs - 24 hr 11/05/19 11/05/19 19:40 19:47 Temperature 35 C L Heart Rate 60 Respiratory 18 Rate Blood Pressure 129/59 L O2 Saturation 86 L 91 L Oxygen O2 Source Room air - EKG (time done) 1952 Rate: Rate (enter#) (84) Rhythm: Atrial fibrillation Tibbie: Normal QRS: Normal Ischemia: Non specific changes Computer interpretation: Agree with computer - Labs Labs: Laboratory Tests 11/05/19 11/05/19 11/05/19 19:58 19:58 19:58 WBC 13.9 H RBC 3.53 L Hgb 10.9 L Hct 34.5 L MCV 97.7 H MCH 30.9 MCHC 31.6 L RDW 15.6 H Plt Count 187 MPV 9.1 Neut # (Auto) 11.4 H Lymph # (Auto) 1.6 [place] # (Auto) 0.7 Eos # (Auto) 0.1 Baso # (Auto) 0.0 Absolute Nucleated RBC 0.00 Nucleated RBC % 0.0 PT 17.2 H INR 1.5 H Sodium 140 Potassium 3.5 Chloride 105 Carbon Dioxide 27 Anion Gap 8.0 BUN 25 H Creatinine 1.1 Estimated GFR (MDRD) 64 L Glucose 170 H Calcium 7.4 L Total Bilirubin 0.8 AST 26 ALT 38 Alkaline Phosphatase 41 L Troponin I High Sens Total Protein 5.0 L Albumin 2.8 L Globulin 2.2 Albumin/Globulin Ratio 1.3 Lipase 28 11/05/19 19:58 WBC RBC Hgb Hct MCV MCH MCHC RDW Plt Count MPV Neut # (Auto) Lymph # (Auto) [place] # (Auto) Eos # (Auto) Baso # (Auto) Absolute Nucleated RBC Nucleated RBC % PT INR Sodium Potassium Chloride Carbon Dioxide Anion Gap BUN Creatinine Estimated GFR (MDRD) Glucose Calcium Total Bilirubin AST ALT Alkaline Phosphatase Troponin I High Sens 4.3 Total Protein Albumin Globulin Albumin/Globulin Ratio Lipase - Rads (name of study) Ct Chest/abd pelvis Radiology: EMP read contemporaneously (Right chest wall hematoma, lungs are normal, bone island in the sternum, celiac artery stenosis) PD MEDICAL DECISION MAKING - ED course ED course: 78-year-old gentleman with multiple medical issues had 3 syncopal episodes tonight preceded by a painful right chest/abdominal pain preceded by sneezing and found to have a chest wall hematoma and thankfully no intra-abdominal organ injury. Given his advanced age and comorbidities should still be observed for the syncope and a call was placed to Dr. Vyas at 10:10 PM. The admitting physician asked me to give the radiologist called to see if there is any active contrast extravasation, study was limited to look at this but there was nothing obvious. Departure - Departure Disposition: ED Place in Observation Clinical Impression: Atrial fibrillation Qualifiers: Atrial fibrillation type: longstanding persistent Qualified Code(s): I48.11 - Longstanding persistent atrial fibrillation Syncope Qualifiers: Syncope type: unspecified Qualified Code(s): R55 - Syncope and collapse Chest wall hematoma Qualifiers: Encounter type: initial encounter Laterality: right Qualified Code(s): S20.211A - Contusion of right front wall of thorax, initial encounter Condition: Fair
[2019-11-05] MEDS ORDERED: METOCLOPRAMIDE 10 MG/2 ML VIAL IVP STA (20:34)
[2019-11-05] MEDS ORDERED: IOVERSOL 320 100 ML VIAL IVP ONE ×2 (20:38→21:14)
--- NOTE | 2019-11-05 21:49 | CT Report ---
Reason: R chest wall pain Procedure Date: 11/05/2019 Accession Number: [id number] / [id number] Procedure: CT - CHEST W CPT Code: Final Report FULL RESULT: EXAM: CT CHEST EXAM DATE: 11/05/2019 09:16 PM. CLINICAL HISTORY: Right chest wall pain. COMPARISONS: CHEST 2 VIEW 12/06/2017 7:26 PM. TECHNIQUE: Routine helical CT imaging was performed through the chest. IV contrast: 100 cc of Optiray 320. Reconstructions: Coronal and sagittal. In accordance with CT protocol optimization, one or more of the following dose reduction techniques were utilized for this exam: automated exposure control, adjustment of mA and/or KV based on patient size, or use of iterative reconstructive technique. FINDINGS: Lungs/Pleura: No nodules, bronchial thickening, consolidation, or edema. Pulmonary vasculature is normal. No pericardial or pleural effusion. No pneumothorax. Mediastinum: Mild aortic and severe left main coronary artery calcification noted. No adenopathy or masses. The heart and great vessels are normal. Bones: Sclerotic focus, sternal manubrium. Other: Thickening of the lateral right chest wall musculature. IMPRESSION: 1. Lateral right chest wall muscular thickening compatible with intramuscular hematoma. 2. Clear lungs. 3. No fracture identified. 4. Sclerotic focus, sternal manubrium, likely bone island. RADIA
--- NOTE | 2019-11-05 21:58 | CT Report ---
Reason: IV only, RUQ pain, anticoagulated Procedure Date: 11/05/2019 Accession Number: [id number] / [id number] Procedure: CT - Abdomen/Pelvis W CPT Code: Final Report FULL RESULT: EXAM: CT ABDOMEN AND PELVIS EXAM DATE: 11/05/2019 09:16 PM. CLINICAL HISTORY: Right upper quadrant pain. Anticoagulated. COMPARISONS: CHEST W/ 11/05/2019 8:46 PM. TECHNIQUE: Routine helical CT imaging was performed through the abdomen and pelvis. IV contrast: 100 cc of Optiray 320. Enteric contrast: No. Reconstructions: Coronal and sagittal. In accordance with CT protocol optimization, one or more of the following dose reduction techniques were utilized for this exam: automated exposure control, adjustment of mA and/or KV based on patient size, or use of iterative reconstructive technique. FINDINGS: Lung Bases: Unremarkable. Liver: Normal. No masses. Gallbladder/Bile Ducts: Unremarkable. Spleen: Normal. Pancreas: Normal. Adrenal Glands: Normal. Kidneys: Multiple bilateral cysts, otherwise unremarkable. Peritoneal Cavity/Bowel: Normal. No free fluid, free air or adenopathy. No masses or acute inflammatory process. Appendectomy clips noted. Pelvic Organs: Normal. The bladder and visualized pelvic organs are within normal limits. Vasculature: No aortic aneurysm. Mild atherosclerotic calcification. Proximal celiac artery stenosis. Bones: Degenerative disk disease at L5-S1. Other: Lateral abdominal wall muscular thickening. IMPRESSION: 1. Thickening of the right lateral abdominal wall musculature compatible with intramuscular hematoma. 2. Proximal celiac artery stenosis noted. RADIA
[2019-11-05 22:21] LABS: BILIRUBIN,URINE NEGATIVE (NEGATIVE); GLUCOSE, URINE (UA) NEGATIVE (NEGATIVE); KETONES,URINE (UA) NEGATIVE (NEGATIVE); LEUKOCYTE ESTERASE, URINE NEGATIVE (NEGATIVE); NITRITE,URINE NEGATIVE (NEGATIVE); OCCULT BLOOD,URINE NEGATIVE (NEGATIVE); PROTEIN,URINE NEGATIVE (NEGATIVE); UROBILINOGEN,URINE 0.2 (NORMAL) E.U./dL (NORMAL)
[2019-11-05 22:23] LABS: CLARITY,URINE CLEAR (CLEAR)
[2019-11-05] MEDS ORDERED: SODIUM CHLORIDE FLUSH 0.9% 10 ML SYRINGE IVP PRN (22:31)
[2019-11-05] MEDS ORDERED: ONDANSETRON 4 MG/2 ML VIAL IVP PRN (22:31)
[2019-11-05] MEDS ORDERED: ACETAMINOPHEN 325 MG TABLET PO PRN (22:31)
--- NOTE | 2019-11-05 22:43 | HISTORY & PHYSICAL EXAMINATION ---
Chief Complaint - Chief Complaint Chief Complaint: syncope History of Present Illness - Admitted From Admitted From:: [facility] - History Obtained From Records Reviewed: yes History obtained from: patient and spouse - History of Present Illness HPI Comment/Other: Patient is an 78 y/o morbidly obese male with multiple co-morbidities including CAD, Atrial fibrillation on coumadin, TRIXIE who presented to the ED after a syncopal episode at home. This evening he sneezed and started experiencing excruciating right-sided chest wall/ rib pain that caused him to double over. This had also happened a few days prior when he coughed. About 1 hour after the incident this evening he stood up from a sitting position and suddenly felt dizzy. He had a blank stare and his knees started to buckle. His came to his aid and guided him back into the chair. He was also clammy and pale at the time. As a result his called EMS. He denies a previous occurrence. He denies chest pain, abd pain, nausea or vomiting. He always has some dypnea on exertion. He complained of a headache and reports that he had a mechanical fall 1 week ago where he slipped on a rug and hit his head. His adds that he has not been eating or drinking much lately Work up in the ED included a CT of the chest, abd/pelvis with contrast. It was noted that he had a chest wall hematoma. He was presented for admission for further evaluation and treatment. History - Past Medical History Cardiovascular: reports: Hypertension, High cholesterol, Coronary artery disease, Atrial fibrillation Respiratory: reports: Sleep apnea, CPAP use Endocrine/Autoimmune: reports: HyPOthyroidism GI: reports: None, GERD : reports: Benign prostate hypertrophy, Retention, Frequency HEENT: reports: Chronic vision loss, Chronic hearing loss, Other Psych: reports: Depression Musculoskeletal: reports: Chronic back pain MRSA Hx?: No Other Past Medical History: Hx of testicular cancer with recurrence. s/p bliateral orchiectomy - Past Surgical History Ortho: reports: Rotator cuff repair /GUIDE WINDER: reports: Other (bilateral orchiectomy) - Family & Social History Family History Comment/Other: father: of old age. Also had emphysema (was a smoker). mother: of old age. sister1 : from surgical complications. sister2: from cardiomypathy 2/2 viral infection Living arrangement: At home Living Situation: With spouse/s.o. Social History Notes: He does not smoke, drink alcohol or use illicit drugs. - POLST Patient has POLST: No POLST Status: DNR Meds/Allgy - Home Medications Home Medications: Ambulatory Orders Medication Instructions Recorded Confirmed Atorvastatin [Lipitor] 80 mg PO DAILY PM 12/16/16 12/16/16 Cholecalciferol (Vitamin D3) 1,000 unit PO DAILY 12/16/16 12/16/16 [Vitamin D3] Cyanocobalamin (Vitamin B-12) 1,000 mcg PO DAILY 12/16/16 12/16/16 [Vitamin B-12] Econazole Nitrate 1 misc TOP DAILY PM 12/16/16 12/16/16 Flunisolide 0.025 sprays NEB DAILY 12/16/16 12/16/16 Furosemide [Lasix] 80 mg PO DAILY 12/16/16 12/16/16 Gabapentin 900 mg PO BID 12/16/16 12/16/16 Levothyroxine [Synthroid] 100 mcg PO DAILY 12/16/16 12/16/16 Metoprolol Tartrate 50 mg PO BID 12/16/16 12/16/16 Omeprazole [PriLOSEC] 20 mg PO BID 12/16/16 12/16/16 Oxybutynin Chloride 5 mg PO DAILY 12/16/16 12/16/16 Potassium Chloride 20 meq PO DAILY PM 12/16/16 12/16/16 Sodium Chloride [Saline Mist] 2 spray NEB BID 12/16/16 12/16/16 Warfarin [Coumadin] 4 mg PO QPM 12/16/16 12/16/16 Albuterol Sulf [Ventolin Hfa 2 puffs INH Q4HR PRN #1 inhaler 12/06/17 Inhaler] Aspirin 81 mg PO DAILY 11/05/19 11/05/19 Colchicine 0.6 mg PO PRN PRN 11/05/19 11/05/19 Duloxetine HCl [Cymbalta] 60 mg PO DAILY 11/05/19 11/05/19 Ferrous Sulfate 325 mg PO DAILY 11/05/19 11/05/19 Finasteride 5 mg PO QPM 11/05/19 11/05/19 Loratadine [Claritin] 10 mg PO BID 11/05/19 11/05/19 Mirabegron [Myrbetriq] 25 mg PO BID 11/05/19 11/05/19 Tamsulosin [Flomax] 0.8 mg PO QPM 11/05/19 11/05/19 Testosterone [Androgel] 0.5 packet BID 11/05/19 11/05/19 Trazodone HCl 300 mg PO QPM 11/05/19 11/05/19 - Allergies Allergies/Adverse Reactions: Allergies Allergy/AdvReac Type Severity Reaction Status Date / Time No Known Drug Allergies Allergy Verified 11/05/19 20:15 Review of Systems - Constitutional Constitutional: denies: Fatigue, Fever, Chills - Eyes Eyes: denies: Pain, Dipolpia - Ears, Nose & Throat Ears, Nose & Throat: reports: Hearing loss (chronic). denies: Vertigo, Sore throat - Cardiovascular Cariovascular: reports: Irregular heart rate, Syncope. denies: Edema, Exertional dyspnea - Respiratory Respiratory: denies: Cough, Sputum production, Wheezing, Hemoptysis, SOB at rest - Gastrointestinal Gastrointestinal: denies: Abdominal pain, Constipation, Diarrhea, Black stools, Nausea, Vomiting, Coffee grounds emesis, Other (obese abdomen) - Genitourinary Genitourinary: denies: Dysuria, Frequency, Urgency, Hematuria, Incontinence, Flank pain - Musculoskeletal Musculoskeletal: reports: Muscle pain (right-sided chest wall) - Integumentary Integumentary: denies: Rash, Pruritis, Lesions - Neurological Neurological: reports: Dizziness. denies: General weakness, Focal weakness, Headache - Psychiatric Psychiatric: denies: Depression, Anxiety - Endocrine Endocrine: denies: Polyuria, Polydypsia - Hematologic/Lymphatic Hematologic/Lymphatic: denies: Anemia, Bruising Prior Level of Functionality: He can dress himself, take a bath, change his clothing and get in and out of bed on his own. He can also feed himself. It has been getting difficult to groom himself because he cannot stand for long. He mainly gets around the house by furniture surfing. He has a cane but does not use it. He has a scooter to get around when he is out on appointments. He does not use in the the house because there is not enough room to maneuver it. Exam - Vital Signs Vital Signs: Vital Signs x48h Temp Pulse Resp BP Pulse Ox 11/05/19 19:47 35 C L 60 18 129/59 L 91 L 11/05/19 19:40 86 L - Physical Exam General Appearance: positive: Alert, Moderate distress Eyes Bilateral: positive: Normal inspection, PERRL, EOMI ENT: positive: ENT inspection nml Neck: positive: Nml inspection, No JVD, Trachea midline Respiratory: positive: No respiratory distress, Breath sounds nml, Other (right-sided chest wall tenderness). negative: Chest non-tender, Wheezes, Rales, Rhonchi Cardiovascular: positive: Irregularly irregular Abdomen: positive: Non-tender, No organomegaly, Nml bowel sounds, No distention, Other (obese abdomen). negative: Guarding, Rebound Back: positive: Nml inspection Skin: positive: Color nml, Warm, Dry. negative: No rash Extremities: positive: Non-tender, Nml appearance, No pedal edema Neurologic/Psychiatric: positive: Oriented x3, Mood/affect nml Conclusion/Plan - Problem List (1) Syncope Conclusion/Plan: Etiology undetermined ?2/2 vaso-vagal vs dehydration IV hydration with normal saline Trend troponin. Check orthostatics qshift 2D echo Will hold metoprololo for tonight and reassess in the morning. Will hold lasix while hydrating patient Qualifiers: Syncope type: unspecified Qualified Code(s): R55 - Syncope and collapse (2) Chest wall hematoma Conclusion/Plan: No active extravasation of contrast. Will hold coumadin for now and monitor H&H Qualifiers: Encounter type: initial encounter Laterality: right Qualified Code(s): S20.211A - Contusion of right front wall of thorax, initial encounter (3) Atrial fibrillation Conclusion/Plan: On coumadin. INR 1.5. Will hold coumadin while monitoring H&H in light of reported hematoma. Qualifiers: Atrial fibrillation type: longstanding persistent Qualified Code(s): I48.11 - Longstanding persistent atrial fibrillation (4) Coronary artery disease Conclusion/Plan: Pt has historry of PCI with 1 stent placed 5 years ago. Severe calcification seen in left main coronary artery on chest CT done today. Patient is scheduled to follow up with his diesel engine specialist Dr Enma Coleman in [place] on 11/26/2019. They are to discuss referral for angiogram/angioplasty. Metoprolol held for now due to syncope. Continue aspirin and atorvastatin (5) Hyperlipidemia Conclusion/Plan: Continue atorvastatin (6) Hypothyroidism Conclusion/Plan: Resume synthroid once verified (7) BPH (benign prostatic hyperplasia) Conclusion/Plan: On finasteride and tamsulosin (8) GERD (gastroesophageal reflux disease) Conclusion/Plan: Protonix ordered (9) Overactive bladder Conclusion/Plan: On myrbetriq and oxybutynin (10) Insomnia Conclusion/Plan: On trazodone (11) Depression Conclusion/Plan: On cymbalta (12) Leukocytosis Conclusion/Plan: Likely reactive. Will monitor (13) TRIXIE on CPAP Conclusion/Plan: Continue home CPAP (14) Fall Conclusion/Plan: mechanical. (slipped on rug) Occurred 1 week ago. Hit his head In light of persistent headache and being on coumadin will order CT of the brain w/o contrast. (15) Candidiasis Conclusion/Plan: Nystatin powder ordered - Lab Results Fish Bones: 11/06/19 04:15 11/06/19 04:15 Core Measures - Anticipated LOS I expect patient to be DC'd or transferred within 96 hours.: Yes - DVT/VTE - Prophylaxis VTE/DVT Device ordered at admit?: Yes VTE/DVT Prophylaxis med ordered at admit?: Yes
[2019-11-05] MEDS ORDERED: HYDROmorphone 1 MG/ML CARPUJECT IVP STA (22:53)
[2019-11-05] MEDS ORDERED: SODIUM CHLORIDE 0.9% 1,000 ML IV SCH (23:00)
[2019-11-05] MEDS: SODIUM CHLORIDE 0.9% 1,000 ML IV SCH (23:20)
[2019-11-06] MEDS ORDERED: SODIUM CHLORIDE FLUSH 0.9% 10 ML SYRINGE IVP SCH (01:00)
--- NOTE | 2019-11-06 01:33 | CT Report ---
Reason: s/p fall, hit head, on coumadin, Procedure Date: 11/06/2019 Accession Number: [id number] / [id number] Procedure: CT - HEAD WO CPT Code: Final Report FULL RESULT: EXAM: CT HEAD EXAM DATE: 11/06/2019 01:08 AM. CLINICAL HISTORY: S/p fall, hit head, on coumadin. COMPARISON: None. TECHNIQUE: Multiaxial CT images were obtained from the foramen magnum to the vertex. Reformats: Sagittal and coronal. IV contrast: None. In accordance with CT protocol optimization, one or more of the following dose reduction techniques were utilized for this exam: automated exposure control, adjustment of mA and/or KV based on patient size, or use of iterative reconstructive technique. FINDINGS: Parenchyma: No intraparenchymal hemorrhage. No evidence of mass, midline shift, or CT findings of acute infarction. Kevin-white differentiation is distinct. Diffuse chronic microangiopathic white matter changes are evident. Extraaxial Spaces: Normal for age. No subdural or epidural collections identified. Ventricles: The ventricles and cortical sulci are enlarged, consistent with age-related tissue loss. Sinuses and orbits: Imaged paranasal sinuses, orbits, and mastoids show no significant abnormality. Bones: No evidence of fracture or calvarial defect. Other: None. IMPRESSION: Generalized age-related cortical atrophic changes without evidence of acute intracranial abnormality. RADIA
[2019-11-06] MEDS: HYDROcod/ACETAM 7.5 MG/325 MG TABLET PO PRN ×2 (03:26→12:12)
[2019-11-06] MEDS: NYSTATIN POWDER 15 GM TOP SCH ×2 (03:27→09:17)
[2019-11-06 04:56] LABS: BASOPHILS % (AUTO) 0.3 %; EOSINOPHILS % (AUTO) 0.3 %; LYMPHOCYTES # (AUTO) 1.4 10^3/uL (1.5-3.5); LYMPHOCYTES % (AUTO) 10.8 %; MEAN CORPUSCULAR HGB CONC 31.7 g/dL (32.0-36.0); MEAN CORPUSCULAR VOLUME 97.7 fL (80.0-94.0); MEAN PLATELET VOLUME 9.3 fL (7.4-11.4); MONOCYTES # (AUTO) 0.9 10^3/uL (0.0-1.0); MONOCYTES % (AUTO) 6.6 %; NEUTROPHILS # (AUTO) 10.6 10^3/uL (1.5-6.6); NEUTROPHILS % (AUTO) 81.4 %; PLT - PLATELET COUNT 208 10^3/uL (130-450); RED BLOOD COUNT 3.55 10^6/uL (4.70-6.10); RED CELL DISTRIBUTION WIDTH 15.7 % (12.0-15.0)
[2019-11-06 04:57] LABS: CALCIUM 8.3 mg/dL (8.5-10.3); CREATININE 1.4 mg/dL (0.6-1.2)
[2019-11-06 05:05] LABS: INR 1.4 (0.8-1.2); PT - PROTHROMBIN TIME 15.4 secs (9.9-12.6)
[2019-11-06] MEDS ORDERED: PANTOPRAZOLE 40 MG TABLET PO SCH (07:00)
--- NOTE | 2019-11-06 08:57 | PHARMACY PROGRESS NOTE ---
- Best Possible Medication History Admit Date and Time: 11/05/19 9104 Medication History completed: Yes Patient Interview: Completed As the person ultimately responsible for medication therapy, providers are able to order a medication from an existing home medication list in [facility] via the "Reconcile Routine" prior to Confirmation of that medication by operations support coordinator. Such practice is discouraged except when the physician, in their clinical judgment, deems that a medical need exists for a medication without regard to previous use.
[2019-11-06] MEDS: SODIUM CHLORIDE 0.9% 1,000 ML IV SCH (09:17)
[2019-11-06] MEDS ORDERED: SODIUM CHLORIDE 0.9% 1,000 ML IV SCH (10:47)
[2019-11-06] MEDS ORDERED: ASPIRIN CHEW 81 MG TABLET PO SCH (11:00)
[2019-11-06] MEDS ORDERED: GABAPENTIN 300 MG CAPSULE PO SCH (11:00)
--- NOTE | 2019-11-06 11:02 | Discharge Plan ---
Discharge Plan Problem Reviewed?: Yes Disposition: Home, Self Care Condition: Stable Prescriptions: Metoprolol Succinate [Toprol Xl] 25 mg PO BID #60 tab.er.24h Nystatin 1 each MC BID #14 powder.ea. Diet: Diabetic Activity Restrictions: Activity as Tolerated Instruction Topics: Dehydration Health Concerns: You were hospitalized because of a fainting spell. It appears that you were dehydrated and your blood pressure medications were excessive. You received iv hydration. The Lasix was stopped. The Metoprolol was on hold. An Echocardiogram (ultrasound of the heart) was planned for more evaluation of why you fainted, but we do not have that available for a week over the holiday period. You should have an outpatient Echo, if your PCP or Framing Inspector want it done. You were also found to have a small hematoma (bruise) on the chest wall, possibly from the severe coughing spell. Your Coumadin was on hold for a day but it can be resumed now. You have a yeast infection of the skin of ypur groin and are being prescribed a powder to treat it. You are being discharged and should resume all your prehospital medications EXCEPT no Lasix (water pill) and the metoprolol pill was changed to a lower dose but long-acting agent. The new prescriptions were sent to your pharmacy electronically. You should have light activity and be seen by your PCP or your Framing Inspector in the next 5-7 days. If you have new or worsening symptoms, call your PCP or come to the ER. Plan of Treatment: As above. Care Goals: Stabilization of symptoms and improvement is the goal. Assessment: The patient understands. No Smoking: If you smoke, Please STOP! Call for help. Follow-up with: Fabian Moreno MD [Primary Care Provider] -
[2019-11-06 11:12] LABS: HGB - HEMOGLOBIN 9.7 g/dL (14.0-18.0); MEAN CORPUSCULAR HEMOGLOBIN 29.6 pg (27.0-31.0); MEAN CORPUSCULAR HGB CONC 30.7 g/dL (32.0-36.0); MEAN CORPUSCULAR VOLUME 96.3 fL (80.0-94.0); MEAN PLATELET VOLUME 8.9 fL (7.4-11.4); RED BLOOD COUNT 3.28 10^6/uL (4.70-6.10); RED CELL DISTRIBUTION WIDTH 15.8 % (12.0-15.0)
[2019-11-06] MEDS ORDERED: FERROUS SULFATE 325 MG TABLET PO SCH (12:00)
[2019-11-06 12:50] VITALS: BP 144/68
--- NOTE | 2019-11-06 15:06 | DISCHARGE SUMMARY ---
Discharge Summary Admit Date: 11/05/19 Discharge Date: 11/06/19 Discharging Provider: Dr Jessica Guzman Primary Care Provider: Dr Fabian Moreno Code Status: Do Not Attempt Resuscitation Condition at Discharge: Stable Discharge Disposition: 01 Home, Self Care - DIAGNOSES Admission Diagnoses: (1) Syncope (2) Chest wall hematoma (3) Atrial fibrillation (4) Coronary artery disease (5) Hyperlipidemia (6) Hypothyroidism (7) BPH (benign prostatic hyperplasia) (8) GERD (gastroesophageal reflux disease) (9) Overactive bladder (10) Insomnia (11) Depression (12) Leukocytosis (13) TRIXIE on CPAP (14) Fall (15) Candidiasis Discharge Diagnoses with Status of Each Condition: See below - HPI History of Present Illness: From the admission H&P of Dr Thao Vyas: Patient is an 78 y/o morbidly obese male with multiple co-morbidities including CAD, Atrial fibrillation on coumadin, TRIXIE who presented to the ED after a syncopal episode at home. This evening he sneezed and started experiencing excruciating right-sided chest wall/ rib pain that caused him to double over. This had also happened a few days prior when he coughed. About 1 hour after the incident this evening he stood up from a sitting position and suddenly felt dizzy. He had a blank stare and his knees started to buckle. His came to his aid and guided him back into the chair. He was also clammy and pale at the time. As a result his called EMS. He denies a previous occurrence. He denies chest pain, abd pain, nausea or vomiting. He always has some dypnea on exertion. He complained of a headache and reports that he had a mechanical fall 1 week ago where he slipped on a rug and hit his head. His adds that he has not been eating or drinking much lately Work up in the ED included a CT of the chest, abd/pelvis with contrast. It was noted that he had a chest wall hematoma. He was presented for admission for further evaluation and treatment - HOSPITAL COURSE Hospital Course: (1) Syncope Etiology was probably vaso-vagal and dehydration. He received IV hydration with normal saline and lasix was on hold. Orthostatic check was stable the next day. An Echo was planned but not available (over the [place] week here). He was discharged with advice to resume all his meds except not the Lasix for about a week, and his dose of Metoprolol Tartrate 50 mg bid was changed to a long acting agent, but at a lower dose: Metoprolol Succinate 25 mg bid. 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 (2) Chest wall hematoma No active extravasation of contrast was seen on imaging. The coumadin was OK'd to restart. (3) Atrial fibrillation On coumadin. The B-dom dose was changed as in #1. (4) Coronary artery disease Pt has history of PCI with a stent placed 5 years ago. Severe calcification seen in left main coronary artery on chest CT done today. Patient is scheduled to follow up with his oncology radiation physician Dr Enma Coleman in [place] on 11/26/2019. They are to discuss referral for angiogram/angioplasty. His hs-troponins were no t elevated. He was kept on his aspirin and atorvastatin then resumed on is B- dom and Coumadin at discharge. (5) Hyperlipidemia Continued on atorvastatin (6) Hypothyroidism Synthroid was continued (7) BPH (benign prostatic hyperplasia) He was kept on finasteride and tamsulosin (8) GERD (gastroesophageal reflux disease) Protonix ordered (9) Overactive bladder On myrbetriq and oxybutynin (10) Insomnia His trazodone was continued (11) Depression On cymbalta while here (12) Leukocytosis Likely reactive as there were no clinical signs of infection. (13) TRIXIE on CPAP Continued home CPAP (14) Fall A mechanical fall (slipped on rug) occurred 1 week ago. Hit his head. In light of persistent headache and being on coumadin, a CT of the brain w/o contrast was done that showed no trauma. (15) Candidiasis He had red and foul-smelling areas in his folds, for which Nystatin powder ordered. - ALLERGIES Allergies/Adverse Reactions: Allergies Allergy/AdvReac Type Severity Reaction Status Date / Time No Known Drug Allergies Allergy Verified 11/05/19 20:15 - MEDICATIONS Home Medications: Ambulatory Orders Medication Instructions Recorded Confirmed Cholecalciferol (Vitamin D3) 1,000 unit PO BID 12/16/16 11/06/19 [Vitamin D3] Cyanocobalamin (Vitamin B-12) 1,000 mcg PO DAILY 12/16/16 11/06/19 [Vitamin B-12] Gabapentin 900 mg PO BID 12/16/16 11/06/19 Levothyroxine [Synthroid] 100 mcg PO QDAC 12/16/16 11/06/19 Omeprazole [PriLOSEC] 20 mg PO BID 12/16/16 11/06/19 Oxybutynin Chloride 10 mg PO DAILY 12/16/16 11/06/19 Potassium Chloride 20 meq PO DAILY PM 12/16/16 11/06/19 Aspirin 81 mg PO DAILY 11/05/19 11/06/19 Colchicine 0.6 mg PO PRN PRN 11/05/19 11/06/19 Duloxetine HCl [Cymbalta] 60 mg PO DAILY 11/05/19 11/06/19 Ferrous Sulfate 325 mg PO DAILY 11/05/19 11/06/19 Finasteride 5 mg PO QPM 11/05/19 11/06/19 Loratadine [Claritin] 10 mg PO QPM 11/05/19 11/06/19 Mirabegron [Myrbetriq] 25 mg PO DAILY 11/05/19 11/06/19 Tamsulosin [Flomax] 0.8 mg PO QPM 11/05/19 11/06/19 Testosterone [Androgel] 5 gm TOP DAILY 11/05/19 11/06/19 Trazodone HCl 300 mg PO QPM 11/05/19 11/05/19 Ascorbic Acid 1,000 mg PO BID 11/06/19 11/06/19 Atorvastatin Calcium 80 mg PO QPM 11/06/19 11/06/19 Calcium Carbonate 500 mg PO BID 11/06/19 11/06/19 Metoprolol Succinate [Toprol Xl] 25 mg PO BID #60 tab.er.24h 11/06/19 Nystatin 1 each MC BID #14 powder.ea. 11/06/19 Warfarin Sodium 2 mg PO TUWE@209911/06/19 11/06/19 Warfarin Sodium 4 mg PO SUMOTHFRSA@209911/06/19 11/06/19 - PHYSICAL EXAM AT DISCHARGE General Appearance: positive: No acute distress, Other (Obese, has long hair and disheveled appearance.) Eyes Bilateral: positive: Normal inspection, EOMI ENT: positive: ENT inspection nml, No signs of dehydration Neck: positive: Nml inspection Respiratory: positive: No respiratory distress, Breath sounds nml Cardiovascular: positive: Regular rate & rhythm, No murmur Abdomen: positive: Non-tender, Other (Oese with a pannus) Extremities: positive: No pedal edema Neurologic/Psychiatric: positive: Oriented x3, Other (Non-focal) - LABS Result Diagrams: 11/06/19 11:05 11/06/19 04:15 - DIAGNOSTIC IMAGING Diagnostic Imaging Results: Final report reviewed - FOLLOW UP Follow Up: See PCP as per routine and keep upcoming appointment with Cardiology. - TIME SPENT Time Spent in Discharge (Minutes): 30
[2019-11-06] MEDS ORDERED: DOCUSATE SODIUM 250 MG CAPSULE PO SCH (16:16)
[2019-11-06] MEDS ORDERED: POLYETHYLENE GLYCOL 3350 17 GM PACKET PO SCH (16:16)
[2019-11-06] MEDS ORDERED: SENNA 8.6 MG TABLET PO SCH (16:16)
[2019-11-06] MEDS ORDERED: WARFARIN 1 MG TABLET PO SCH (21:00)
[2019-11-07] MEDS ORDERED: WARFARIN 1 MG TABLET PO SCH (21:00)
== END 2019-11-06 16:50 | disposition home or self-care (01) ==
LOC: ED 19:39 → MS2 22:31
PROVIDERS: ADMIT Internal Medicine; ATTEND Internal Medicine
DX: R55 Syncope and collapse (principal); E86.0 Dehydration; R51 Headache; S20.211A Contusion of right front wall of thorax, initial encounter; W01.10XA Fall on same level from slipping, tripping and stumbling with subsequent striking against unspecified object, initial encounter; I48.11 Longstanding persistent atrial fibrillation; I25.10 Atherosclerotic heart disease of native coronary artery without angina pectoris; B37.2 Candidiasis of skin and nail; E78.5 Hyperlipidemia, unspecified; E03.9 Hypothyroidism, unspecified; K21.9 Gastro-esophageal reflux disease without esophagitis; G47.00 Insomnia, unspecified; F32.9 Major depressive disorder, single episode, unspecified; D72.829 Elevated white blood cell count, unspecified; G47.33 Obstructive sleep apnea (adult) (pediatric); I10 Essential (primary) hypertension; N40.1 Benign prostatic hyperplasia with lower urinary tract symptoms; R33.8 Other retention of urine; R35.0 Frequency of micturition; N32.81 Overactive bladder; Z91.81 History of falling; E66.01 Morbid (severe) obesity due to excess calories; Z68.42 Body mass index [BMI] 45.0-49.9, adult; Z95.5 Presence of coronary angioplasty implant and graft; Z79.82 Long term (current) use of aspirin; Z79.01 Long term (current) use of anticoagulants; Z79.899 Other long term (current) drug therapy; Z85.47 Personal history of malignant neoplasm of testis; Z90.79 Acquired absence of other genital organ(s); Z66 Do not resuscitate
CPT/HCPCS: 36415; 70450; 71260; 74177; 80048; 80053; 81003; 83690; 84484; 85025; 85027; 85610; 87640; 93005; 96361; 96374; 96375; 99285; A9270; G0378; J1170; J2765; Q9967; 81001; 87086

== ENCOUNTER 2020-06-15 12:49 | Emergency (ER) | payer MEDICARE, BC ==
[2020-06-15] MEDS ORDERED: SODIUM CHLORIDE 0.9% 1,000 ML IV STA (13:05)
[2020-06-15] MEDS ORDERED: DICYCLOMINE 10 MG CAPSULE PO STA (13:05)
[2020-06-15] MEDS ORDERED: ONDANSETRON 4 MG/2 ML VIAL IVP STA (13:05)
[2020-06-15] MEDS ORDERED: LOPERAMIDE 2 MG CAPSULE PO STA (13:05)
--- NOTE | 2020-06-15 13:07 | ED Physician Documentation ---
PD HPI ABD PAIN - Stated complaint Stated Complaint: DIARRHEA, NAUSEA, VOMITING - Chief complaint Chief Complaint: Abd Pain - History obtained from History obtained from: Patient, Family () - Additional information Additional information: 79-year-old gentleman with history of coronary disease, A. fib, no longer on anticoagulation because of falls risk and recurrent bruising presents with a day's worth of abdominal cramping, vomiting and diarrhea. No blood from either end. No respiratory symptoms. No fevers, that said he feels like he is "burning up." No sick contacts. Did travel to [place] a few days ago. Review of Systems Constitutional: reports: Sweats. denies: Fever, Chills Cardiac: denies: Chest pain / pressure, Palpitations Respiratory: denies: Dyspnea, Cough GI: reports: Abdominal Pain (Cramps), Nausea, Vomiting, Diarrhea. 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: Other (bilateral orchiectomy) - Present Medications Home Medications: Ambulatory Orders Medication Instructions Recorded Confirmed Cholecalciferol (Vitamin D3) 1,000 unit PO BID 12/16/16 11/06/19 [Vitamin D3] Cyanocobalamin (Vitamin B-12) 1,000 mcg PO DAILY 12/16/16 11/06/19 [Vitamin B-12] Gabapentin 900 mg PO BID 12/16/16 11/06/19 Levothyroxine [Synthroid] 100 mcg PO QDAC 12/16/16 11/06/19 Omeprazole [PriLOSEC] 20 mg PO BID 12/16/16 11/06/19 Oxybutynin Chloride 10 mg PO DAILY 12/16/16 11/06/19 Potassium Chloride 20 meq PO DAILY PM 12/16/16 11/06/19 Aspirin 81 mg PO DAILY 11/05/19 11/06/19 Colchicine 0.6 mg PO PRN PRN 11/05/19 11/06/19 Duloxetine HCl [Cymbalta] 60 mg PO DAILY 11/05/19 11/06/19 Ferrous Sulfate 325 mg PO DAILY 11/05/19 11/06/19 Finasteride 5 mg PO QPM 11/05/19 11/06/19 Loratadine [Claritin] 10 mg PO QPM 11/05/19 11/06/19 Mirabegron [Myrbetriq] 25 mg PO DAILY 11/05/19 11/06/19 Tamsulosin [Flomax] 0.8 mg PO QPM 11/05/19 11/06/19 Testosterone [Androgel] 5 gm TOP DAILY 11/05/19 11/06/19 Trazodone HCl 300 mg PO QPM 11/05/19 11/05/19 Ascorbic Acid 1,000 mg PO BID 11/06/19 11/06/19 Atorvastatin Calcium 80 mg PO QPM 11/06/19 11/06/19 Calcium Carbonate 500 mg PO BID 11/06/19 11/06/19 Metoprolol Succinate [Toprol Xl] 25 mg PO BID #60 tab.er.24h 11/06/19 Nystatin 1 each MC BID #14 powder.ea. 11/06/19 Warfarin Sodium 2 mg PO TUWE@209911/06/19 11/06/19 Warfarin Sodium 4 mg PO SUMOTHFRSA@2100 11/06/19 11/06/19 Dicyclomine [Bentyl] 1 - 2 tab PO QID PRN #20 capsule 06/15/20 Loperamide [Imodium] 2 mg PO QID PRN #10 capsule 06/15/20 Ondansetron Odt [Zofran] 4 mg TL Q6H PRN #10 tablet 06/15/20 - Allergies Allergies/Adverse Reactions: Allergies Allergy/AdvReac Type Severity Reaction Status Date / Time No Known Drug Allergies Allergy Verified 06/15/20 12:55 - Social History Does the pt smoke?: No Smoking Status: Never smoker Does the pt drink ETOH?: No Does the pt have substance abuse?: No - Immunizations Immunizations are current?: Yes - POLST Patient has POLST: No POLST Status: DNR PD ED PE NORMAL - Vitals Vital signs reviewed: Yes - General General: Alert and oriented X 3, Other (Very hard of hearing) - Respiratory Respiratory: No respiratory distress, Clear bilaterally - Abdomen Abdomen: Normal bowel sounds, Soft, Non tender - Back Back: No CVA TTP, No spinal TTP - Neuro Neuro: Alert and oriented X 3, Normal speech Results - Vitals Vitals: Vital Signs - 24 hr 06/15/20 12:53 Temperature 36.6 C Heart Rate 75 Respiratory 20 Rate Blood Pressure 157/87 H O2 Saturation 94 Oxygen O2 Source Room air - Labs Labs: Laboratory Tests 06/15/20 06/15/20 06/15/20 13:28 13:28 13:28 WBC 7.1 RBC 3.98 L Hgb 12.5 L Hct 38.9 L MCV 97.7 H MCH 31.4 H MCHC 32.1 RDW 14.8 Plt Count 139 MPV 8.7 Neut # (Auto) 5.6 Lymph # (Auto) 0.8 L [place] # (Auto) 0.5 Eos # (Auto) 0.2 Baso # (Auto) 0.0 Absolute Nucleated RBC 0.00 Nucleated RBC % 0.0 Sodium 144 Potassium 4.4 Chloride 106 Carbon Dioxide 27 Anion Gap 11.0 BUN 12 Creatinine 1.2 Estimated GFR (MDRD) 58 L Glucose 145 H Lactic Acid 1.6 Calcium 8.7 Total Bilirubin 0.8 AST 21 ALT 24 Alkaline Phosphatase 57 Total Protein 6.7 Albumin 3.8 Globulin 2.9 Albumin/Globulin Ratio 1.3 Lipase 29 PD MEDICAL DECISION MAKING - ED course ED course: 79-year-old gentleman who presents with less than today's worth of vomiting and diarrhea as well as stomach cramps, benign abdomen. Labs are reassuring. Feeling much better after IV fluids, Bentyl, and Imodium and Zofran. Passed an oral challenge and remained nontender on repeat evaluation. Family requested coronavirus testing although pretest probability is low we are doing it. Departure - Departure Disposition: 01 Home, Self Care Clinical Impression: Gastroenteritis Vomiting Qualifiers: Vomiting type: unspecified Vomiting Intractability: non-intractable Nausea presence: with nausea Qualified Code(s): R11.2 - Nausea with vomiting, unspecified Diarrhea Qualifiers: Diarrhea type: presumed infectious Qualified Code(s): R19.7 - Diarrhea, unspecified Condition: Good Record reviewed to determine appropriate education?: Yes Instructions: ED Gastroenteritis Viral Prescriptions: Dicyclomine [Bentyl] 1 - 2 tab PO QID PRN #20 capsule PRN Reason: Abdominal Pain Loperamide [Imodium] 2 mg PO QID PRN #10 capsule PRN Reason: Diarrhea Ondansetron Odt [Zofran] 4 mg TL Q6H PRN #10 tablet PRN Reason: Nausea / Vomiting Comments: You were seen today for what sounds like classic viral gastroenteritis. Luckily this sort of illness does not last long, generally a day to 36 hours. Return if worse or if not better in that timeframe or if new symptoms develop.
[2020-06-15 13:30] LABS: BASOPHILS % (AUTO) 0.3 %; EOSINOPHILS # (AUTO) 0.2 10^3/uL (0.0-0.7); EOSINOPHILS % (AUTO) 2.4 %; HGB - HEMOGLOBIN 12.5 g/dL (14.0-18.0); LYMPHOCYTES # (AUTO) 0.8 10^3/uL (1.5-3.5); LYMPHOCYTES % (AUTO) 11.8 %; MEAN CORPUSCULAR HEMOGLOBIN 31.4 pg (27.0-31.0); MEAN CORPUSCULAR HGB CONC 32.1 g/dL (32.0-36.0); MEAN CORPUSCULAR VOLUME 97.7 fL (80.0-94.0); MEAN PLATELET VOLUME 8.7 fL (7.4-11.4); MONOCYTES # (AUTO) 0.5 10^3/uL (0.0-1.0); MONOCYTES % (AUTO) 6.3 %; NEUTROPHILS # (AUTO) 5.6 10^3/uL (1.5-6.6); NEUTROPHILS % (AUTO) 78.6 %; PLT - PLATELET COUNT 139 10^3/uL (130-450); RED BLOOD COUNT 3.98 10^6/uL (4.70-6.10); RED CELL DISTRIBUTION WIDTH 14.8 % (12.0-15.0); WHITE BLOOD COUNT 7.1 x10^3/uL (4.8-10.8)
[2020-06-15 13:47] LABS: ALBUMIN 3.8 g/dL (3.2-5.5); ALBUMIN/GLOBULIN RATIO 1.3 (1.0-2.2); BILIRUBIN,TOTAL 0.8 mg/dL (0.2-1.0); CALCIUM 8.7 mg/dL (8.5-10.3); CREATININE 1.2 mg/dL (0.6-1.2); TOTAL PROTEIN 6.7 g/dL (6.7-8.2)
[2020-06-15 14:27] VITALS: BP 148/78
== END 2020-06-15 14:27 | disposition home or self-care (01) ==
LOC: ED 12:49
DX: K52.9 Noninfective gastroenteritis and colitis, unspecified (principal); I10 Essential (primary) hypertension; I25.10 Atherosclerotic heart disease of native coronary artery without angina pectoris; Z79.82 Long term (current) use of aspirin; H91.90 Unspecified hearing loss, unspecified ear
CPT/HCPCS: 36415; 80053; 83605; 83690; 85025; 96374; 99283; A9270

== ENCOUNTER 2020-06-16 16:07 | Emergency (ER) | payer MEDICARE, BC ==
[2020-06-16 16:32] LABS: BASOPHILS % (AUTO) 0.4 %; EOSINOPHILS # (AUTO) 0.2 10^3/uL (0.0-0.7); HGB - HEMOGLOBIN 12.7 g/dL (14.0-18.0); LYMPHOCYTES # (AUTO) 1.1 10^3/uL (1.5-3.5); LYMPHOCYTES % (AUTO) 14.3 %; MEAN CORPUSCULAR HEMOGLOBIN 30.6 pg (27.0-31.0); MEAN CORPUSCULAR HGB CONC 31.1 g/dL (32.0-36.0); MEAN CORPUSCULAR VOLUME 98.6 fL (80.0-94.0); MONOCYTES # (AUTO) 0.5 10^3/uL (0.0-1.0); MONOCYTES % (AUTO) 6.8 %; NEUTROPHILS % (AUTO) 76.1 %; PLT - PLATELET COUNT 163 10^3/uL (130-450); RED BLOOD COUNT 4.15 10^6/uL (4.70-6.10); RED CELL DISTRIBUTION WIDTH 15.1 % (12.0-15.0); WHITE BLOOD COUNT 7.9 x10^3/uL (4.8-10.8)
[2020-06-16 16:46] LABS: ALBUMIN 3.9 g/dL (3.2-5.5); ALBUMIN/GLOBULIN RATIO 1.3 (1.0-2.2); BILIRUBIN,TOTAL 0.9 mg/dL (0.2-1.0); CALCIUM 8.8 mg/dL (8.5-10.3); CREATININE 1.2 mg/dL (0.6-1.2)
[2020-06-16 16:52] LABS: BILIRUBIN,URINE NEGATIVE (NEGATIVE); GLUCOSE, URINE (UA) NEGATIVE (NEGATIVE); KETONES,URINE (UA) NEGATIVE (NEGATIVE); LEUKOCYTE ESTERASE, URINE NEGATIVE (NEGATIVE); NITRITE,URINE NEGATIVE (NEGATIVE); OCCULT BLOOD,URINE NEGATIVE (NEGATIVE); PH,URINE 6.5 PH (5.0-7.5); PROTEIN,URINE NEGATIVE (NEGATIVE); UROBILINOGEN,URINE 0.2 (NORMAL) E.U./dL (NORMAL)
[2020-06-16 16:53] LABS: CLARITY,URINE CLEAR (CLEAR)
[2020-06-16] MEDS ORDERED: SODIUM CHLORIDE 0.9% 1,000 ML IV STA (16:54)
--- NOTE | 2020-06-16 16:58 | ED Physician Documentation ---
History of Present Illness - Stated complaint Stated Complaint: AMS - Chief complaint Chief Complaint: Abd Pain - History obtained from History obtained from: Patient, Family, EMS - History of Present Illness Timing: Prior to arrival, How many hours ago (8) - Additonal information Additional information: 79-year-old male presents to the emergency department for chief complaint of visual and auditory hallucinations that were noted this a.m. This gentleman was seen in the ER yesterday with vomiting and diarrhea suspected to be due to a viral gastroenteritis. He was discharged home with a prescription for loperamide, Zofran and Bentyl. Since being seen in the emergency department his reports that the vomiting and diarrhea has improved though he has been a little nauseated. This a.m. he reported seeing people on the back porch that were not there. He also told his that they entered the house. 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 Though they were never worked up. He does have a history of atrial fibrillation. He is not anticoagulated seconda ry to a history of recurrent falls In the room he is hard of hearing but alert. He is oriented to person place and time. He does admit to seeing things that are not there and hearing music that he knows is not playing Review of Systems Constitutional: denies: Fever, Chills Cardiac: denies: Chest pain / pressure, Palpitations Respiratory: denies: Dyspnea, Cough GI: reports: Nausea, Vomiting, Diarrhea : denies: Dysuria, Frequency Musculoskeletal: denies: Neck pain, Back pain Neurologic: denies: Generalized weakness, Numbness, Difficulty speaking, Syncope, Seizure, Confused Psychiatric: reports: Hallucinations (Auditory and visual hallucinations) PD PAST MEDICAL HISTORY - Past Medical History Cardiovascular: Congestive heart failure, Hypertension, High cholesterol, Coronary artery disease, Atrial fibrillation Respiratory: Sleep apnea, CPAP use Neuro: None Endocrine/Autoimmune: HyPOthyroidism GI: GERD, Diverticulitis : Benign prostate hypertrophy, Retention, Frequency HEENT: Chronic vision loss, Chronic hearing loss, Other Psych: Depression Musculoskeletal: Chronic back pain Derm: None Other Past Medical History: testicular cancer - Past Surgical History Past Surgical History: Yes Ortho: Rotator cuff repair, 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: 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 (bilateral orchiectomy) Cardiovascular: Coronary stent - Present Medications Home Medications: Ambulatory Orders Medication Instructions Recorded Confirmed Cholecalciferol (Vitamin D3) 1,000 unit PO BID 12/16/16 11/06/19 [Vitamin D3] Cyanocobalamin (Vitamin B-12) 1,000 mcg PO DAILY 12/16/16 11/06/19 [Vitamin B-12] Gabapentin 900 mg PO BID 12/16/16 11/06/19 Levothyroxine [Synthroid] 100 mcg PO QDAC 12/16/16 11/06/19 Omeprazole [PriLOSEC] 20 mg PO BID 12/16/16 11/06/19 Oxybutynin Chloride 10 mg PO DAILY 12/16/16 11/06/19 Potassium Chloride 20 meq PO DAILY PM 12/16/16 11/06/19 Aspirin 81 mg PO DAILY 11/05/19 11/06/19 Colchicine 0.6 mg PO PRN PRN 11/05/19 11/06/19 Duloxetine HCl [Cymbalta] 60 mg PO DAILY 11/05/19 11/06/19 Ferrous Sulfate 325 mg PO DAILY 11/05/19 11/06/19 Finasteride 5 mg PO QPM 11/05/19 11/06/19 Loratadine [Claritin] 10 mg PO QPM 11/05/19 11/06/19 Mirabegron [Myrbetriq] 25 mg PO DAILY 11/05/19 11/06/19 Tamsulosin [Flomax] 0.8 mg PO QPM 11/05/19 11/06/19 Testosterone [Androgel] 5 gm TOP DAILY 11/05/19 11/06/19 Trazodone HCl 300 mg PO QPM 11/05/19 11/05/19 Ascorbic Acid 1,000 mg PO BID 11/06/19 11/06/19 Atorvastatin Calcium 80 mg PO QPM 11/06/19 11/06/19 Calcium Carbonate 500 mg PO BID 11/06/19 11/06/19 Metoprolol Succinate [Toprol Xl] 25 mg PO BID #60 tab.er.24h 11/06/19 Nystatin 1 each MC BID #14 powder.ea. 11/06/19 Warfarin Sodium 2 mg PO TUWE@209911/06/19 11/06/19 Warfarin Sodium 4 mg PO SUMOTHFRSA@209911/06/19 11/06/19 Dicyclomine [Bentyl] 1 - 2 tab PO QID PRN #20 capsule 06/15/20 Loperamide [Imodium] 2 mg PO QID PRN #10 capsule 06/15/20 Ondansetron Odt [Zofran] 4 mg TL Q6H PRN #10 tablet 06/15/20 - Allergies Allergies/Adverse Reactions: Allergies Allergy/AdvReac Type Severity Reaction Status Date / Time No Known Drug Allergies Allergy Verified 06/16/20 16:10 - Social History Does the pt smoke?: No Smoking Status: Never smoker Does the pt drink ETOH?: No Does the pt have substance abuse?: No - Immunizations Immunizations are current?: Yes - POLST Patient has POLST: No POLST Status: DNR PD ED PE EXPANDED - General General: Alert, No acute distress, Well developed/nourished - Neck Neck: Supple w/out meningeal sx. No: Adenopathy, Limited ROM - Cardiac Cardiac: Irregularly irregular, Murmur Present, Radial strong equal, Femoral strong equal, Cap refill < 2 sec. No: Prolonged cap refill - Respiratory Respiratory: Clear to ausultation marvin. No: Distress, Labored, Retractions, Wheezing, Rhonchi - Abdomen Abdomen: Normal Bowel sounds, Generalized/diffuse (Mildly tender but nonfocal.). No: Hyperactive BS, Epigastric - Derm Derm: Normal color, Warm and dry, Pale - Extremities Extremities: Normal, Deformity, Tenderness - Neuro Neuro: Alert and Oriented X 3, CNII-XII intact. No: Confused, Disoriented, L ethargic, Weakness, Abnormal sensation, Aphasia - GCS Eye Opening: Spontaneous Motor: Obeys Commands Verbal: Oriented Total: 15 - Psych Psych: Auditory hallucinations (Reports seeing people on his back porch that entered the house that were not there. Also endorses hearing popular music that he knows is not playing), Visual hallucinations Results - Vitals Vitals: Vital Signs - 24 hr 06/16/20 06/16/20 16:10 16:21 Temperature 36.8 C Heart Rate 90 82 Respiratory 20 19 Rate Blood Pressure 153/134 H 162/85 H O2 Saturation 88 L 98 Oxygen O2 Source Nasal cannula - Labs Labs: Laboratory Tests 06/16/20 06/16/20 06/16/20 16:25 16:25 16:30 WBC 7.9 RBC 4.15 L Hgb 12.7 L Hct 40.9 L MCV 98.6 H MCH 30.6 MCHC 31.1 L RDW 15.1 H Plt Count 163 MPV 9.0 Neut # (Auto) 6.0 Lymph # (Auto) 1.1 L [place] # (Auto) 0.5 Eos # (Auto) 0.2 Baso # (Auto) 0.0 Absolute Nucleated RBC 0.00 Nucleated RBC % 0.0 Sodium 137 Potassium 4.4 Chloride 102 Carbon Dioxide 27 Anion Gap 8.0 BUN 11 Creatinine 1.2 Estimated GFR (MDRD) 58 L Glucose 120 H Calcium 8.8 Total Bilirubin 0.9 AST 19 ALT 22 Alkaline Phosphatase 64 Total Protein 7.0 Albumin 3.9 Globulin 3.1 Albumin/Globulin Ratio 1.3 Lipase 32 Urine Color YELLOW Urine Clarity CLEAR Urine pH 6.5 Ur Specific [place] 1.015 Urine Protein NEGATIVE Urine Glucose (UA) NEGATIVE Urine Ketones NEGATIVE Urine Occult Blood NEGATIVE Urine Nitrite NEGATIVE Urine Bilirubin NEGATIVE Urine Urobilinogen 0.2 (NORMAL) Ur Leukocyte Esterase NEGATIVE Ur Microscopic Review NOT INDICATED Urine Culture Comments NOT INDICATED PD MEDICAL DECISION MAKING - ED course Complexity details: reviewed results, re-evaluated patient, d/w patient, d/w family ED course: 79-year-old male presents to the emergency department for evaluation of both auditory and visual hallucinations that were noted this morning. He was seen in the ED yesterday for vomiting and diarrhea thought to be a viral gastroenteritis. Since being seen yesterday the vomiting and diarrhea removed. His reports that the only new medication that he has actually taken was the Zofran. In a chart review this can be associated with hallucinations. - He has no obvious focal deficits. And is otherwise neurologically intact - His labs are reviewed. He does not appear dehydrated. He has no urinary tract infection. - His denies any alcohol use and they also deny that he has missed any of his regular medication doses. 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 Those were self-limiting and they did not seek evaluation for them - He is clinically stable for discharge home if his hallucinations worsen, he becomes unsafe or has any other physical signs such as worsening diarrhea or focal neuro deficits he is to return to the emergency department Family was advised close follow-up with a primary care provider Departure - Departure Disposition: 01 Home, Self Care Clinical Impression: Hallucinations Condition: Stable Follow-Up: Fabian Moreno MD [Primary Care Provider] - Comments: David's labs today look pretty normal. He is not dehydrated. There is no infection in his urine. The hallucinations may be a side effect of the medication ordered yesterday. Please do not give him any further doses of Zofran and do not give him the loperamide or Bentyl. I would like you to follow-up this ED visit with his primary care doctor shortly if his symptoms are worsening return to the emergency department. Return to the emergency department for uncontrolled vomiting and diarrhea, any slurred speech or facial droop
[2020-06-16 18:59] VITALS: BP 151/76
== END 2020-06-16 18:35 | disposition home or self-care (01) ==
LOC: EDUNIT# → ED 16:07
DX: R44.1 Visual hallucinations (principal); R44.0 Auditory hallucinations; I10 Essential (primary) hypertension; Z79.82 Long term (current) use of aspirin; Z66 Do not resuscitate
CPT/HCPCS: 36415; 80053; 81001; 81003; 83690; 85025; 87086; 99283; 99284

== ENCOUNTER 2020-11-25 23:05 | Outpatient (CLI) | payer MEDICARE, BC | END 2020-11-25 23:06 | disposition EMS.NT | LOC: EMS 23:05 | PROVIDERS: ATTEND Surgery | DX: Z03.89 Encounter for observation for other suspected diseases and conditions ruled out (principal) ==

== ENCOUNTER 2020-11-26 08:06 | Outpatient (CLI) | payer MEDICARE, BC | END 2020-11-26 08:07 | disposition short-term general hospital (02) | LOC: EMS 08:06 | PROVIDERS: ATTEND Surgery | DX: S09.90XA Unspecified injury of head, initial encounter (principal); R06.02 Shortness of breath; R53.1 Weakness; W18.30XA Fall on same level, unspecified, initial encounter; W22.03XA Walked into furniture, initial encounter; Y92.003 Bedroom of unspecified non-institutional (private) residence as the place of occurrence of the external cause | CPT/HCPCS: A0425; A0427 ==

== ENCOUNTER 2020-12-01 06:49 | Outpatient (CLI) | payer MEDICARE, BC | END 2020-12-01 06:50 | disposition EMS.NT | LOC: EMS 06:49 | PROVIDERS: ATTEND Surgery | DX: Z03.89 Encounter for observation for other suspected diseases and conditions ruled out (principal) ==